=== PATIENT | male | born 1960 | race Caucasian/White ===

== ENCOUNTER 2017-04-26 13:39 | Emergency (ER) | payer BC, SELFPAY ==
[2017-04-26 14:12] LABS: #Basophils 0.1 thou/uL (0.0-0.2); #Eosinphils 0.1 thou/uL (0.0-0.7); #Lymphocytes 2.1 thou/uL (1.20-3.40); #Monocytes 0.4 thou/uL (0.11-0.59); %Basophils 1.8 % (0.0-1.0); %Eosinophils 1.3 % (0.0-10.0); %Lymphocytes 37.4 % (21.0-51.0); %Monocytes 7.1 % (0.0-10.0); %Neutrophils 52.4 % (42.0-75.0); Hemoglobin 15.3 g/dL (14.0-18.0); Mean Corpuscular Hemoglobin 33.9 pg (27.0-31.0); Platelet Count 300 thou/uL (130-400); RBC Distribution Width 11.2 % (11.5-14.5); Red Blood Cell (RBC) Count 4.51 mill/uL (4.70-6.10); White Blood Cell (WBC) Count 5.7 thou/uL (4.8-10.8)
[2017-04-26 14:20] LABS: INR-International Normal Ratio 1.1; Prothrombin Time 14.3 SEC (12.0-14.7)
[2017-04-26 14:21] LABS: PTT 32.4 SEC (22.9-36.1)
[2017-04-26 14:38] LABS: CKMB 1.2 ng/mL (0-6.6); Troponin I Less than 0.010 ng/mL (< 0.028)
[2017-04-26 14:48] LABS: ALT (SGPT) 13 U/L (8-55); AST (SGOT) 18 U/L (5-34); Alkaline Phosphatase 86 U/L (40-150); Anion Gap 15 mmol/L (10-20); BUN (Urea Nitrogen) 8 mg/dL (8.4-25.7); Bilirubin, Total 0.6 mg/dL (0.2-1.2); CK (CPK) 83 U/L (30-200); Calc. Creatinine Clearance 0 mL/min (70-130); Calcium 9.5 mg/dL (7.8-10.44); Carbon Dioxide 21 mmol/L (22-29); Chloride 105 mmol/L (98-107); Estimated GFR-MDRD Greater than 90; Globulin 3.3 g/dL (2.4-3.5); Glucose 78 mg/dL (70-105); Potassium 4.1 mmol/L (3.5-5.1); Protein, Total 7.3 g/dL (6.0-8.3); Sodium 137 mmol/L (136-145)
--- NOTE | 2017-04-26 15:24 | RAD ---
UPRIGHT PORTABLE CHEST 1 VIEW: HISTORY: A 57-year-old male with a history of chest pain. COMPARISON: 04/09/16. FINDINGS: Monitor leads overlie the chest. Heart size is within normal limits. No confluent pneumonia, overt edema, or pleural effusion. IMPRESSION: No acute intrathoracic disease. Stable from prior study. POS: [facility]
[2017-04-26] MEDS ORDERED: Acetaminophen 500 MG TAB ONE (16:41)
== END 2017-04-26 17:04 | disposition home or self-care (01) ==
LOC: ERS 13:39
DX: R07.89 Other chest pain (principal); I10 Essential (primary) hypertension; I48.91 Unspecified atrial fibrillation; E78.5 Hyperlipidemia, unspecified; F17.210 Nicotine dependence, cigarettes, uncomplicated; Z79.899 Other long term (current) drug therapy
CPT/HCPCS: 71045; 80053; 82553; 84484; 85025; 85610; 85730; 93005; 94760

== ENCOUNTER 2017-08-23 14:13 | Outpatient (CLI) | payer OTHER ==
--- NOTE | 2017-08-23 15:08 | RAD ---
CERVICAL SPINE 2 VIEWS: HISTORY: Neck pain and headache. FINDINGS: Vertebral bodies are normal in height. There is disk narrowing at C4-5 and C6-7. Facets are in norm al alignment. IMPRESSION: Moderate arthritic changes of the spine. POS: [facility]
== END 2017-08-23 14:14 | disposition home or self-care (01) ==
LOC: SCSRAD 14:13
PROVIDERS: ATTEND Psychiatry & Neurology Neurology
DX: R51 Headache (principal); M46.92 Unspecified inflammatory spondylopathy, cervical region
CPT/HCPCS: 72040

== ENCOUNTER 2017-11-20 11:48 | Outpatient (CLI) | payer OTHER | END 2017-11-20 11:49 | disposition home or self-care (01) | LOC: BICRAD 11:48 | PROVIDERS: ATTEND Family Medicine | DX: R07.9 Chest pain, unspecified (principal) | CPT/HCPCS: 71046 ==

== ENCOUNTER 2017-12-28 12:17 | Outpatient (CLI) | payer OTHER ==
--- NOTE | 2017-12-28 15:38 | MRI ---
MRI CERVICAL SPINE WITHOUT CONTRAST: Multiplanar, multisequential imaging of the cervical spine obtained. INDICATION: Cervical radiculopathy. Cervical pain. FINDINGS: Cervical vertebrae maintain height and alignment. There are moderate degenerative changes in the mid cervical spine. Loss of disk space is seen at C4-5, C5-6, and C6-7. Hypertrophic osteophytes from the cervical vertebrae anteriorly. At C2-3, there is prominent disk-osteophyte complex projecting centrally and to the left and flatteni ng the thecal sac. No significant cord impingement. At C3-4, disk bulge and spondylosis efface the anterior subarachnoid space and abut the anterior cord . Mild foraminal encroachment from uncinate hypertrophy. At C4-5, mild disk bulge and spondylosis efface the anterior subarachnoid space and abut the anterior cord. Bilateral foraminal narrowing from facet and uncinate hypertrophy, more prominent on the righ t. At C5-6, there is a disk-osteophyte complex projecting paracentrally to the left appreciated in the a xial plane impinging on and mildly indenting the anterior cord. Foraminal encroachment from the hype rtrophic change. At C6-7, mild disk bulge and spondylosis flattens the thecal sac and effaces the anterior subarachnoi d space; however, no evidence of cord impingement. Mild foraminal encroachment from uncinate hypertr ophy. Cord signal is normal. IMPRESSION: 1. Posterior disk bulge and spondylosis is seen at multiple levels of the cervical spine with cord i mpingement at C3-4, C4-5, and C5-6 as described above. 2. Incidentally noted on review of soft tissues is evidence of soft tissue encroachment on the airwa y in the lower oropharynx and upper hypopharynx region. This is inadequately evaluated on this study due to artifact in this region. Recommend direct physical examination of this region. POS: [facility]
== END 2017-12-28 12:18 | disposition home or self-care (01) ==
LOC: BICMRI 12:17
PROVIDERS: ATTEND Family Medicine
DX: M47.22 Other spondylosis with radiculopathy, cervical region (principal); M50.11 Cervical disc disorder with radiculopathy, high cervical region
CPT/HCPCS: 72156

== ENCOUNTER 2018-04-08 17:07 | Emergency (ER) | payer OTHER ==
[2018-04-08 17:53] LABS: #Basophils 0.1 thou/uL (0.0-0.2); #Eosinphils 0.1 thou/uL (0.0-0.7); #Lymphocytes 2.4 thou/uL (1.20-3.40); #Monocytes 0.5 thou/uL (0.11-0.59); %Basophils 1.2 % (0.0-1.0); %Eosinophils 1.8 % (0.0-10.0); %Lymphocytes 39.7 % (21.0-51.0); %Monocytes 7.6 % (0.0-10.0); %Neutrophils 49.8 % (42.0-75.0); Hemoglobin 14.9 g/dL (14.0-18.0); Mean Corpuscular HGB CONC 32.4 g/dL (32.0-36.0); Mean Corpuscular Hemoglobin 32.1 pg (27.0-31.0); Mean Corpuscular Volume 99.1 fL (78.0-98.0); Mean Platelet Volume 7.4 fL (7.4-10.4); Platelet Count 327 thou/uL (130-400); Red Blood Cell (RBC) Count 4.63 mill/uL (4.70-6.10)
[2018-04-08 18:16] LABS: ALT (SGPT) 15 U/L (8-55); AST (SGOT) 15 U/L (5-34); Albumin 4.1 g/dL (3.5-5.0); Alkaline Phosphatase 90 U/L (40-150); Anion Gap 14 mmol/L (10-20); BUN (Urea Nitrogen) 11 mg/dL (8.4-25.7); Bilirubin, Total 0.7 mg/dL (0.2-1.2); Calc. Creatinine Clearance 0 mL/min (70-130); Calcium 9.4 mg/dL (7.8-10.44); Carbon Dioxide 26 mmol/L (22-29); Chloride 104 mmol/L (98-107); Estimated GFR-MDRD 79; Globulin 2.7 g/dL (2.4-3.5); Glucose 91 mg/dL (70-105); Potassium 3.9 mmol/L (3.5-5.1); Protein, Total 6.8 g/dL (6.0-8.3); Sodium 140 mmol/L (136-145)
--- NOTE | 2018-04-08 19:08 | RAD ---
TWO VIEWS CHEST: 04/08/18 HISTORY: Chest pain for one week. PA and lateral views of the chest is obtained. The lungs are well aerated. No evidence of active intrathoracic disease seen. No evidence of effusion s, pneumonia or pneumothorax seen. IMPRESSION: Unremarkable two views chest. POS: [facility]
== END 2018-04-08 19:49 | disposition home or self-care (01) ==
LOC: ERS 17:07
DX: R07.9 Chest pain, unspecified (principal); E78.5 Hyperlipidemia, unspecified; I10 Essential (primary) hypertension; I48.91 Unspecified atrial fibrillation; F17.210 Nicotine dependence, cigarettes, uncomplicated; Z79.82 Long term (current) use of aspirin; Z79.899 Other long term (current) drug therapy; Z79.51 Long term (current) use of inhaled steroids
CPT/HCPCS: 36415; 71046; 80053; 84484; 85025; 93005

== ENCOUNTER 2018-06-28 15:29 | Outpatient (CLI) | payer OTHER ==
--- NOTE | 2018-06-28 15:50 | RAD ---
EXAM: Cervical spine 5 views: HISTORY: Degenerative disc disease, neck pain left shoulder pain COMPARISON: None FINDINGS: C7 and T1 are obscured on the lateral view, the tip of the odontoid in portions of C1 are obscured on the AP open mouth view. No evidence for acute fracture or dislocation involving the visualized spine. There are disc osteophytosis and facet arthrosis changes. No malalignment. No abnormal translation. No evidence for a bone lesion. IMPRESSION: Spondylosis. No significant acute process.
== END 2018-06-28 15:30 | disposition home or self-care (01) ==
LOC: TBSIIMAG 15:29
PROVIDERS: ATTEND Surgery
DX: M48.02 Spinal stenosis, cervical region (principal); M47.812 Spondylosis without myelopathy or radiculopathy, cervical region; M50.10 Cervical disc disorder with radiculopathy, unspecified cervical region
CPT/HCPCS: 72050

== ENCOUNTER 2018-12-13 08:02 | Outpatient (CLI) | payer OTHER ==
--- NOTE | 2018-12-13 09:46 | MRI ---
MRI brain with and without contrast: 11/12/2018 HISTORY: Chronic headaches, chronic dizziness COMPARISON: 02/20/2016 TECHNIQUE: Multiplanar multisequence MR imaging of the brain is obtained with and without contrast FINDINGS: The diffusion weighted imaging demonstrates no evidence for acute infarction. The axial gra dient echo imaging demonstrates no evidence for intracranial hemorrhage. The visualized paranasal sinuses and mastoid air cells are well aerated. Arterial flow voids at the axial level of the skull base are unremarkable on the T2-weighted imaging. The right vertebral artery appears hypoplastic distally. The postcontrast imaging demonstrates no abnormal enhancement within the brain parenchyma. IMPRESSION: No acute findings.
== END 2018-12-13 08:03 | disposition home or self-care (01) ==
LOC: BICMRI 08:02
PROVIDERS: ATTEND Surgery
DX: R51 Headache (principal); M54.12 Radiculopathy, cervical region
CPT/HCPCS: 70553

== ENCOUNTER 2019-08-09 15:06 | Observation (INO) | payer MEDICARE, OTHER ==
[2019-08-09] MEDS ORDERED: Nitroglycerin 2% Ointment 1 INCH/1 GM Packet ONE (16:02)
[2019-08-09 16:06] LABS: #Basophils 0.1 thou/uL (0.0-0.2); #Eosinphils 0.1 thou/uL (0.0-0.7); #Monocytes 0.5 thou/uL (0.11-0.59); #Neutrophils 2.8 thou/uL (1.40-6.50); %Basophils 1.3 % (0.0-1.0); %Eosinophils 1.1 % (0.0-10.0); %Lymphocytes 46.9 % (21.0-51.0); %Monocytes 7.1 % (0.0-10.0); %Neutrophils 43.7 % (42.0-75.0); Hemoglobin 15.6 g/dL (14.0-18.0); Mean Corpuscular HGB CONC 32.7 g/dL (32.0-36.0); Mean Corpuscular Hemoglobin 33.4 pg (27.0-31.0); Mean Platelet Volume 8.1 fL (7.4-10.4); Platelet Count 308 thou/uL (130-400); RBC Distribution Width 11.8 % (11.5-14.5); Red Blood Cell (RBC) Count 4.66 mill/uL (4.70-6.10); White Blood Cell (WBC) Count 6.3 thou/uL (4.8-10.8)
[2019-08-09 16:13] LABS: Prothrombin Time 13.6 sec (12.0-14.7)
[2019-08-09 16:27] LABS: ALT (SGPT) 18 U/L (8-55); AST (SGOT) 19 U/L (5-34); Albumin 4.1 g/dL (3.5-5.0); Alkaline Phosphatase 89 U/L (40-110); Anion Gap 14 mmol/L (10-20); BUN (Urea Nitrogen) 6 mg/dL (8.4-25.7); Bilirubin, Total 0.6 mg/dL (0.2-1.2); CK (CPK) 80 U/L (30-200); Calc. Creatinine Clearance 0 mL/min (70-130); Carbon Dioxide 22 mmol/L (22-29); Chloride 109 mmol/L (98-107); Estimated GFR-MDRD 89; Glucose 85 mg/dL (70-105); Potassium 4.1 mmol/L (3.5-5.1); Protein, Total 7.1 g/dL (6.0-8.3); Sodium 141 mmol/L (136-145)
[2019-08-09] MEDS ORDERED: Morphine 2 MG/ML SYRINGE ONE (16:57)
--- NOTE | 2019-08-09 17:04 | RAD ---
CHEST ONE VIEW: 08/09/19 HISTORY: Chest pain. COMPARISON: Radiograph 2018. FINDINGS: A recording device projects in the left hemithorax. There is a calcification in the right axillary po uch. Lungs are clear. No pneumothorax. No effusion. Cardiac silhouette and mediastinal contours appear wit hin normal limits. IMPRESSION: No acute intrathoracic abnormality. POS: [facility]
[2019-08-09 18:47] LABS: Troponin I Less than 0.010 ng/mL (< 0.028)
--- NOTE | 2019-08-09 20:02 | HP ---
PRIMARY CARE PHYSICIAN: Benny Cruz MD CHIEF COMPLAINT: Chest pain. HISTORY OF PRESENT ILLNESS: The patient is a 59-year-old male with past medical history significant for hypertension, AFib status post ablation in 2017, and hyperlipidemia, who presents to the ER for epigastric and chest pain. The patient states that he has had this chest pain since 2016. It comes on and off, but over the past 2 to 3 weeks, it has been more profound and occurring more often. The pain starts with stomach tightening or cramping and then rises up into his chest where he feels needles and pins toward his heart. Shortness of breath can accompany the pain along with becoming diaphoretic and he does feel, at times, that is worse with a deep breath. He notices no difference in pain with movement or rest. No medications have been tried to relieve the pain at home. Today, he developed a sharper pain than his usual when lying down which took his breath away. This pain did not leave or stop like it usually does and it stayed up until his arrival at the ER where it began to dull in nature. 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 White, who completed a stress test on him 2 weeks ago, which the patient says was normal. He had been started on Isosorbide but stated that made him too nauseous so they changed him to Ranexa which he thinks he is also having a hard time tolerating. He also states that Dr. Jacobo did an EGD on him 4 to 5 months ago, which showed an ulcer, that was biopsied, but this pain is different than the pain he experienced at that time. In the ER, blood work was completed along with an EKG, which showed sinus rhythm, 72 pulse, no ectopic beats. Also, a chest x-ray was completed, that showed nothing acute. He was given 2 mg of morphine and 1 inch of nitroglycerin paste, which he said neither one relieved any of his symptoms. PAST MEDICAL HISTORY: Hypertension, AFib, and hyperlipidemia. PAST SURGICAL HISTORY: Ablation in 2017 and loop monitor. ALLERGIES: NO KNOWN DRUG ALLERGIES. MEDICATIONS: 1. Aspirin 81 mg p.o. daily. 2. Metoprolol tartrate 25 mg daily. 3. Eliquis 5 mg p.o. b.i.d. 4. Atorvastatin 20 mg p.o. at bedtime. 5. Ranexa 500 mg p.o. b.i.d. SOCIAL HISTORY: The patient lives with his at home. He is a half pack-a- day smoker since the age of 15. No illicit drug use and very rare alcohol use, just socially. FAMILY HISTORY: Mother positive for diabetes and end-stage renal disease. Sister positive for cirrhosis and hepatitis C. REVIEW OF SYSTEMS: All other review of systems are negative unless noted in the HPI. PHYSICAL EXAMINATION: VITAL SIGNS: Blood pressure 114/80, pulse 68, respiratory rate 18, and oxygen saturation 97% on room air. HEENT: Head, normal, atraumatic, normocephalic. NECK: Trachea midline. No JVD. No lymphadenopathy. CARDIOVASCULAR: Regular rate and rhythm. No murmurs, no gallops, no rubs. RESPIRATORY: Clear to auscultation bilaterally. No wheezes, no rhonchi, no rales. ABDOMEN: Bowel sounds normal. No distention, no masses, no guarding, no rigidity. EXTREMITIES: No peripheral edema. PSYCHIATRIC: Normal affect. Normal behavior. LABS AND IMAGING: EKG; sinus rhythm, no ectopic beats. Troponin was negative, serial enzymes pending. BNP 14.3. Sodium 141, potassium 4.1, creatinine 0.88, and GFR 89. Alkaline phosphatase 89, AST 19, and ALT 18. White blood cells 6.3, H/H are 15.6 and 47.6. IMPRESSION: Atypical chest pain, acute, stable Epigastric pain, acute, stable HTN, chronic, stable Hyperlipidemia, chronic, stable PLAN: GI prophylaxis, Pepcid b.i.d. DVT prophylaxis, the patient is currently on Eliquis 5 mg twice a day and aspirin 81 mg. Continue to trend troponins. Consult Cardiology in the a.m. Obtain medical records from his mixing plant dumper. Gallbladder ultrasound for the epigastric pain. The patient wishes to be a full code. His designated power of insurance defense attorney would be his , Koki, phone #. Patient was discussed with Dr. Shelby. Job ID: [id number] MTDD
[2019-08-09] MEDS ORDERED: Acetaminophen 325 MG TAB PO PRN (20:32)
[2019-08-09] MEDS ORDERED: Ondansetron ODT 4 MG TAB SL PRN (20:32)
[2019-08-09] MEDS ORDERED: Ondansetron PF 4 MG/2 ML Vial IVP PRN (20:32)
[2019-08-09 20:48] VITALS: BMI 23.9
[2019-08-09] MEDS: Nitroglycerin 2% Ointment 1 INCH/1 GM Packet TOP SCH (21:50)
[2019-08-09] MEDS: Famotidine 20 MG TAB PO SCH (21:50)
[2019-08-09 22:37] LABS: Troponin I 0.014 ng/mL (< 0.028)
[2019-08-10 04:03] LABS: #Basophils 0.1 thou/uL (0.0-0.2); #Eosinphils 0.2 thou/uL (0.0-0.7); #Lymphocytes 3.1 thou/uL (1.20-3.40); #Monocytes 0.8 thou/uL (0.11-0.59); #Neutrophils 3.1 thou/uL (1.40-6.50); %Basophils 1.2 % (0.0-1.0); %Eosinophils 2.3 % (0.0-10.0); %Lymphocytes 43.2 % (21.0-51.0); %Monocytes 10.8 % (0.0-10.0); %Neutrophils 42.5 % (42.0-75.0); Mean Corpuscular HGB CONC 33.5 g/dL (32.0-36.0); Mean Corpuscular Hemoglobin 34.6 pg (27.0-31.0); Mean Platelet Volume 7.7 fL (7.4-10.4); Platelet Count 254 thou/uL (130-400); RBC Distribution Width 11.7 % (11.5-14.5); Red Blood Cell (RBC) Count 4.05 mill/uL (4.70-6.10); White Blood Cell (WBC) Count 7.3 thou/uL (4.8-10.8)
[2019-08-10 04:27] LABS: Anion Gap 10 mmol/L (10-20); BUN (Urea Nitrogen) 11 mg/dL (8.4-25.7); Calc. Creatinine Clearance 80 mL/min (70-130); Calcium 8.5 mg/dL (7.8-10.44); Carbon Dioxide 28 mmol/L (22-29); Chloride 107 mmol/L (98-107); Estimated GFR-MDRD 78; Glucose 71 mg/dL (70-105); Sodium 141 mmol/L (136-145)
[2019-08-10] MEDS: Nitroglycerin 2% Ointment 1 INCH/1 GM Packet TOP SCH ×3 (05:50→21:30)
[2019-08-10] MEDS: Acetaminophen 325 MG TAB PO PRN ×3 (05:52→16:41)
[2019-08-10] MEDS: Famotidine 20 MG TAB PO SCH ×2 (07:36→21:29)
--- NOTE | 2019-08-10 08:04 | ULT ---
RIGHT UPPER QUADRANT ULTRASOUND: HISTORY: Epigastric pain. FINDINGS: Slightly coarse liver echogenicity. No evidence of gallstones, wall thickening, edema or pericholecys tic fluid. The common bile duct is 0.5 cm. The visualized pancreas and right kidney are unremarkable. IMPRESSION: 1. Slightly coarse liver echogenicity. 2. No evidence of gallstones. POS: [facility]
--- NOTE | 2019-08-10 10:58 | PDOC.HOSPP ---
- Subjective Encounter Date: 08/10/19 Encounter Time: 10:15 Subjective: Mr. Mullins was seen as a follow up for chest and epigastric pain. He states both pains seem to come and go with no contributing factors. The chest pain does seem to be relieved slightly by the nitro patch he thinks. - Objective Vital Signs & Weight: Vital Signs (12 hours) Temp Pulse Resp BP BP Pulse Ox 08/10/19 07:41 98.4 F 59 L 16 103/59 L 97 08/10/19 03:43 98 F 59 L 18 101/58 L 97 08/09/19 23:26 98.7 F 72 18 104/64 97 Weight Weight 152 lb 11.2 oz I&O: 08/09/19 08/10/19 08/11/19 06:59 06:59 06:59 Intake Total 480 Output Total 175 Balance 305 Result Diagrams: 08/10/19 03:41 08/10/19 03:41 EKG Reviewed by me: Yes (SR 60s) Hospitalist ROS - Medication Medications: Active Medications Generic Name Dose Route Start Last Admin Trade Name Freq PRN Reason Stop Dose Admin Acetaminophen 650 mg 08/09/19 20:47 08/10/19 05:52 Tylenol PO 650 mg Q4H PRN Administration Headache/Fever/Mild Pain (1-3) Famotidine 20 mg 08/09/19 21:00 08/10/19 07:36 Pepcid PO 20 mg BID HOOD Administration Nitroglycerin 0.5 inch 08/09/19 22:00 08/10/19 05:50 Nitro-Bid 2% Ointment TOP 0.5 inch Q8HR HOOD Administration Sodium Chloride 10 ml 08/09/19 21:00 08/10/19 07:37 Flush - Normal Saline IVF 10 ml Q12HR HOOD Administration - Exam General Appearance: NAD, awake alert Neck: supple, symmetric, no lymphadenopathy Heart: RRR, no murmur, no gallops, no rubs Respiratory: CTAB, no wheezes, no rales, no ronchi Gastrointestinal: soft, non-tender, non-distended, normal bowel sounds, no guarding, no rigidity Extremities: no cyanosis, no clubbing, no edema Psychiatric: normal affect, normal behavior Hosp A/P (1) Chest pain Code(s): R07.9 - CHEST PAIN, UNSPECIFIED Status: Acute (2) Epigastric abdominal pain Code(s): R10.13 - EPIGASTRIC PAIN Status: Acute - Plan Home medications resumed. Chest pain: continue NTP, tele monitoring, troponins (-) x3, await cardiology consult Epigastric pain: GI prophylaxis- pepcid, await US results NPO at this time for US and cardiology consult
--- NOTE | 2019-08-10 11:05 | CON ---
DATE OF CONSULTATION: REASON FOR CONSULTATION: Chest pain. PRIMARY OWNER/OPERATOR: Dr. Lul Min. HISTORY OF PRESENT ILLNESS: Mr. Mullins is a 59-year-old gentleman, who recently presented with chest pain. Mr. Mullins states he underwent coronary angiography one year ago and was not found to have significant coronary artery disease. He also states he recently underwent a noninvasive stress study 2 weeks ago due to chest pain over the last 4 weeks in [place] and was not found to have ischemia. He states his symptoms occur daily and have occurred daily over the last 4 weeks. They mainly occur after eating. He has been seen and evaluated by GI in the past. His symptoms do not appear to be exertion related. PAST MEDICAL HISTORY: Atrial fibrillation, hypertension, hyperlipidemia. SURGICAL HISTORY: Previous ablation. ALLERGIES: NONE. HOME MEDICATIONS: 1. Aspirin. 2. Metoprolol. 3. Eliquis. 4. Atorvastatin. 5. Ranexa. SOCIAL HISTORY: Positive tobacco use. No alcohol use. FAMILY HISTORY: Negative for CAD. REVIEW OF SYSTEMS: A 10-point review of systems is reviewed as above, otherwise negative. PHYSICAL EXAMINATION: GENERAL: Patient is a pleasant male, who is in no acute distress. The patient appears their stated age. VITAL SIGNS: Blood pressure 103/59, pulse 69, temperature 98.4. NEUROLOGIC: The patient is alert and oriented x3 with no focal neurologic deficits. HEENT: Sclerae without icterus. Mouth has moist mucous membranes with normal pallor. NECK: No JVD. Carotid upstroke brisk. No bruits bilaterally. LUNGS: Clear to auscultation with unlabored respirations. BACK: No scoliosis or kyphosis. CARDIAC: Regular rate and rhythm with normal S1 and S2. No S3 or S4 noted. No significant rubs, murmurs, thrills, or gallops noted throughout the precordium. PMI is not displaced. There is no parasternal heave. ABDOMEN: Soft, nontender, nondistended. No peritoneal signs present. No hepatosplenomegaly. No abnormal striae. EXTREMITIES: 2+ femoral and 2+ dorsalis pedis pulses. No cyanosis, clubbing, or edema. SKIN: No gross abnormalities. PERTINENT LABORATORY DATA: Hemoglobin 14, hematocrit 41.8, platelet count of 254. EKG, normal sinus rhythm with nonspecific ST-T wave changes. IMPRESSION: 1. Recurrent chest pain. 2. Tobacco abuse. 3. Atrial fibrillation, on anticoagulation therapy. RECOMMENDATIONS: Mr. Mullins recently underwent a noninvasive stress study, it was felt to be negative for ischemia. He also had an angiogram performed within the last year per the patient in [place]. We will try to obtain those records. His symptoms do not appear to be anginal. His symptoms occur mainly after eating and not exertion related. At this point, may consider GI consultation to assess for GI origin. Again, we will try to obtain records. From a CV standpoint, we would recommend repeat angio versus medical therapy. At this point, given recent anticoagulation therapy, cannot proceed with angio for the next 2 days. Job ID: [id number]
--- NOTE | 2019-08-10 14:20 | PDOC.HOSPP ---
- Subjective Encounter Date: 08/10/19 Encounter Time: 14:19 Subjective: Mr. Mullins was seen today in follow-up of chest pain. - Objective Vital Signs & Weight: Vital Signs (12 hours) Temp Pulse Resp BP BP Pulse Ox 08/10/19 11:02 98.6 F 56 L 19 114/56 L 98 08/10/19 07:41 98.4 F 59 L 16 103/59 L 97 08/10/19 03:43 98 F 59 L 18 101/58 L 97 Weight Weight 152 lb 11.2 oz I&O: 08/09/19 08/10/19 08/11/19 06:59 06:59 06:59 Intake Total 480 Output Total 175 Balance 305 Result Diagrams: 08/10/19 03:41 08/10/19 03:41 Hospitalist ROS - Medication Medications: Active Medications Generic Name Dose Route Start Last Admin Trade Name Freq PRN Reason Stop Dose Admin Acetaminophen 650 mg 08/09/19 20:47 08/10/19 11:15 Tylenol PO 650 mg Q4H PRN Administration Headache/Fever/Mild Pain (1-3) Famotidine 20 mg 08/09/19 21:00 08/10/19 07:36 Pepcid PO 20 mg BID HOOD Administration Nitroglycerin 0.5 inch 08/09/19 22:00 08/10/19 05:50 Nitro-Bid 2% Ointment TOP 0.5 inch Q8HR HOOD Administration Sodium Chloride 10 ml 08/09/19 21:00 08/10/19 07:37 Flush - Normal Saline IVF 10 ml Q12HR HOOD Administration - Exam General Appearance: NAD Eye: PERRL Heart: RRR, no murmur, no gallops, no rubs, normal peripheral pulses Respiratory: CTAB, no wheezes, no rales, no ronchi, normal chest expansion Gastrointestinal: soft, non-tender, non-distended, normal bowel sounds, no palpable masses, no hepatomegaly Extremities: no cyanosis, no edema Hosp A/P (1) Chest pain Code(s): R07.9 - CHEST PAIN, UNSPECIFIED Status: Acute (2) Alcohol abuse Code(s): F10.10 - ALCOHOL ABUSE, UNCOMPLICATED Status: Chronic (3) HLD (hyperlipidemia) Code(s): E78.5 - HYPERLIPIDEMIA, UNSPECIFIED Status: Chronic - Plan * Chest pain- discussed with Marisela Forbes NP and agree. Awaiting Cardiology evaluation * AFIB- heart rate is stable- continue Metoprolol, and Eleiquis for CVA prophylaxis * Due to the epigastric nature of the pain, and sometimes worsening with eating - agree with consult GI as well
[2019-08-10] MEDS ORDERED: Pantoprazole 40 MG VIAL IVP SCH (17:00)
[2019-08-10] MEDS ORDERED: Apixaban 5 MG TAB PO SCH (21:00)
[2019-08-10] MEDS: Metoprolol Tartrate 50 MG TAB PO SCH (21:29)
[2019-08-10] MEDS: Atorvastatin Calcium 40 MG TAB PO SCH (21:29)
--- NOTE | 2019-08-10 22:48 | CON ---
DATE OF CONSULTATION: 08/10/2019 REASON FOR CONSULTATION: Epigastric pain. HISTORY OF PRESENT ILLNESS: Dhruv Mullins is a 59-year-old gentleman who was admitted to the hospital yesterday with chest pain and epigastric pain. He has a history of atrial fibrillation status post ablation procedure in 2017, but is chronically on Eliquis. He has had several years of intermittent chest pains worked up by Cardiology elsewhere. Late last year at some point, he was having pains in the left upper quadrant and underwent EGD with Dr. Jacobo. He recalls being told he had H pylori and being treated with triple therapy. He feels that those symptoms did improve for a while after that, but now for the past couple of months he has been having what he describes as different pains. These usually originate in the chest and then radiate to the epigastrium, but will sometimes originate in the epigastrium and radiate to the chest and will often involve both areas. This is episodic, but it comes and goes all day long. It is sharp and often severe. It can come on at rest between mealtimes or postprandially. There is associated nausea and occasionally dry heaves, but no vomiting. There is some mild shortness of breath. He denies any dysphagia or any change in bowel habits. He denies any overt bleeding. He is not sure whether nitroglycerin tends to relieve the pain or not. He is not on any acid suppression. He denies nonsteroidal anti-inflammatory drug use. He evidently had a negative stress test elsewhere a couple of weeks ago. REVIEW OF SYSTEMS: Full review of systems including constitutional, head, eyes, ears, nose, throat, GI, , cardiovascular, respiratory, musculoskeletal, neurologic systems is negative except as noted in the HPI. PAST MEDICAL HISTORY: Atrial fibrillation, cardiac ablation 2017, hypertension, hyperlipidemia, H pylori treated after EGD with Dr. Jacobo around late 2018. ALLERGIES: NO KNOWN DRUG ALLERGIES. OUTPATIENT MEDICATIONS: 1. Aspirin 81 mg daily. 2. Eliquis 5 mg b.i.d. 3. Metoprolol. 4. Atorvastatin. 5. Ranexa. SOCIAL HISTORY: The patient does smoke. Alcohol use is rare. FAMILY HISTORY: His sister had HCV and cirrhosis. PHYSICAL EXAMINATION: VITAL SIGNS: Temperature 98.6, pulse 50, blood pressure 108/52, 98% oxygen saturation on room air. GENERAL: A 59-year-old man lying in bed comfortably, in no distress. He is anxious. SKIN: No jaundice. No rashes were palpable. EYES: No scleral icterus. Extraocular movements intact. ENT: Mucous membranes moist. No oral lesions. LYMPH: No submandibular or supraclavicular lymphadenopathy. THYROID: Nontender to palpation. HEART: Regular rate and rhythm. LUNGS: Clear to auscultation bilaterally. ABDOMEN: Bowel sounds are present. Soft, nontender to palpation throughout including in the epigastrium and left upper quadrant. No guarding, rebound, or tenderness. EXTREMITIES: No peripheral edema. VESSELS: Radial pulses 2+ bilaterally. NEURO: Cranial nerves 2-12 intact bilaterally. No focal deficits. LABORATORY STUDIES: Labs are all unremarkable with WBC 7.3, hemoglobin 14.0, platelets 254. INR 1.0. Sodium 141, potassium 4.0, BUN 11, creatinine 0.99. Troponin negative x3. BNP only 14.3. CK only 80. LFTs all normal with total bilirubin 0.6, alkaline phosphatase 18, AST 19, ALT 18, albumin 4.1. I do not see a lipase level. IMAGING STUDIES: Chest x-ray showed no acute processes. Abdominal ultrasound showed coarse liver but normal gallbladder, no stones, normal common bile duct measuring 5 mm. ASSESSMENT AND PLAN: 1. Chest pain, unclear etiology. 2. Epigastric pain. 3. Nausea, associated with epigastric pain and chest pain. 4. History of Helicobacter pylori, treated with triple therapy several months ago. The patient has been evaluated by Cardiology. He evidently had a negative stress test a couple of months ago. Frankly, his symptoms do not seem particularly GI related to me, but he does have this history of treated Helicobacter pylori. It would be reasonable to perform repeat EGD for further evaluation. I will start him on pantoprazole 40 mg IV daily. In the meantime, I would also like to check a lipase level with tomorrow morning's labs. The patient will need to hold his Eliquis for 2 whole days prior to any endoscopy. Eliquis has been held today, so we will hold it tomorrow, and tentatively plan for the procedure the following day. The patient can have his regular cardiac diet in the meantime. Thank you for the consultation. Please call anytime with questions or concerns. Job ID: [id number]
[2019-08-11] MEDS: Nitroglycerin 2% Ointment 1 INCH/1 GM Packet TOP SCH ×3 (06:04→20:16)
[2019-08-11] MEDS: Aspirin Chewable 81 MG TAB PO SCH (07:51)
[2019-08-11] MEDS: Famotidine 20 MG TAB PO SCH ×2 (07:51→20:13)
[2019-08-11] MEDS: Pantoprazole 40 MG VIAL IVP SCH (07:52)
[2019-08-11] MEDS: Metoprolol Tartrate 50 MG TAB PO SCH ×2 (08:04→20:15)
--- NOTE | 2019-08-11 08:45 | PRG ---
DATE OF SERVICE: 08/11/2019 SUBJECTIVE: Mr. Mullins is doing okay this morning. He says he actually had significant reduction of chest and abdominal pain last night. He received his first dose of IV Protonix yesterday evening. He is tolerating breakfast. OBJECTIVE: VITAL SIGNS: Temperature 98.4, pulse 52, blood pressure 125/60, 96% oxygen saturation on room air. GENERAL: No acute distress, sitting up on the side of bed comfortably. HEART: Regular rate and rhythm. LUNGS: Clear to auscultation bilaterally. ABDOMEN: Bowel sounds present. Soft and nontender to palpation. EXTREMITIES: No peripheral edema. LABORATORY STUDIES: Lipase is only 17. ASSESSMENT AND PLAN: 1. Chest pain. 2. Epigastric pain. 3. History of Helicobacter pylori infection, recently treated with triple therapy late last year. We are holding Eliquis for a second day today, in anticipation of diagnostic esophagogastroduodenoscopy tomorrow. The patient has had some improvement in his symptoms overnight after a dose of Protonix yesterday evening, unclear whether this is the reason for improvement. We will proceed with plan for esophagogastroduodenoscopy tomorrow, unless Cardiology team feels otherwise. Job ID: [id number]
--- NOTE | 2019-08-11 11:41 | PDOC.HOSPP ---
- Subjective Encounter Date: 08/11/19 Encounter Time: 10:30 Subjective: Mr Mullins is seen as a follow up this morning for chest and epigastric pain. He states he is feeling somewhat better this morning but still having some upper epigastric pain, he states the chest pain has been much milder when it occurs lately. - Objective Vital Signs & Weight: Vital Signs (12 hours) Temp Pulse Resp BP Pulse Ox 08/11/19 07:50 98.4 F 52 L 16 125/60 96 08/11/19 03:57 98.4 F 50 L 18 121/56 L 98 Weight Weight 152 lb 11.2 oz I&O: 08/10/19 08/11/19 08/12/19 06:59 06:59 06:59 Intake Total 480 1296 Output Total 175 800 Balance 305 496 Result Diagrams: 08/10/19 03:41 08/10/19 03:41 Hospitalist ROS - Medication Medications: Active Medications Generic Name Dose Route Start Last Admin Trade Name Freq PRN Reason Stop Dose Admin Acetaminophen 650 mg 08/09/19 20:47 08/10/19 16:41 Tylenol PO 650 mg Q4H PRN Administration Headache/Fever/Mild Pain (1-3) Aspirin 81 mg 08/11/19 09:00 08/11/19 07:51 Aspirin Chewable PO 81 mg DAILY HOOD Administration Atorvastatin Calcium 20 mg 08/10/19 21:00 08/10/19 21:29 Lipitor PO 20 mg HS HOOD Administration Famotidine 20 mg 08/09/19 21:00 08/11/19 07:51 Pepcid PO 20 mg BID HOOD Administration Metoprolol Tartrate 25 mg 08/10/19 21:00 08/11/19 08:04 Lopressor PO Not Given BID HOOD Nitroglycerin 0.5 inch 08/09/19 22:00 08/11/19 06:04 Nitro-Bid 2% Ointment TOP Not Given Q8HR HOOD Pantoprazole Sodium 40 mg 08/11/19 09:00 08/11/19 07:52 Protonix IVP 40 mg DAILY HOOD Administration Ranolazine 500 mg 08/10/19 21:00 08/11/19 08:04 Ranexa PO Not Given BID [facility] Sodium Chloride 10 ml 08/09/19 21:00 08/11/19 07:53 Flush - Normal Saline IVF 10 ml Q12HR HOOD Administration - Exam General Appearance: NAD, awake alert ENT: normocephalic atraumatic, moist mucosa Neck: supple, symmetric, no lymphadenopathy Heart: RRR, no murmur, no gallops, no rubs Respiratory: CTAB, no wheezes, no rales, no ronchi Gastrointestinal: soft, non-tender, non-distended, normal bowel sounds, no guarding, no rigidity Extremities: no cyanosis, no edema Psychiatric: normal affect, normal behavior Hosp A/P (1) Chest pain Code(s): R07.9 - CHEST PAIN, UNSPECIFIED Status: Acute (2) Epigastric abdominal pain Code(s): R10.13 - EPIGASTRIC PAIN Status: Acute - Plan Chest pain: continue NTP, tele monitoring, troponins (-) x3, awaiting records from regular extermination supervisor to determine how to proceed with cardiology here Epigastric pain: IV protonix, EGD planned for tomorrow Eliquis on hold since yesterday to prepare for EGD tomorrow and possible heart cath this week
[2019-08-11] MEDS: Atorvastatin Calcium 40 MG TAB PO SCH (20:14)
[2019-08-12] MEDS: Nitroglycerin 2% Ointment 1 INCH/1 GM Packet TOP SCH ×3 (05:27→20:13)
[2019-08-12] MEDS: Pantoprazole 40 MG VIAL IVP SCH (07:40)
[2019-08-12] MEDS: Famotidine 20 MG TAB PO SCH ×2 (07:40→20:09)
[2019-08-12] MEDS: Acetaminophen 325 MG TAB PO PRN ×3 (07:41→20:10)
[2019-08-12] MEDS: Aspirin Chewable 81 MG TAB PO SCH (08:00)
[2019-08-12] MEDS ORDERED: Lidocaine 1% PF 5 ML VIAL ONE (10:02)
[2019-08-12] MEDS ORDERED: PROPOFOL 200 MG/20 ML VIAL ONE (10:02)
[2019-08-12] MEDS: Metoprolol Tartrate 50 MG TAB PO SCH ×2 (12:35→20:09)
--- NOTE | 2019-08-12 14:27 | PDOC.HOSPP ---
- Subjective Encounter Date: 08/12/19 Encounter Time: 13:15 Subjective: Mr Mullins is seen as a follow up on epigastric and chest pain. He had an EGD this am where they obtained a biopsy. He presently just has a little stomach discomfort but no chest pain. We are still awaiting records from outpatient cardiology regarding his recent stress test and possible heart cath. - Objective Vital Signs & Weight: Vital Signs (12 hours) Temp Pulse Resp BP Pulse Ox 08/12/19 11:30 98.2 F 48 L 16 121/75 99 08/12/19 10:43 97 08/12/19 07:52 97.8 F 57 L 16 115/61 97 08/12/19 03:49 98.1 F 54 L 18 99/56 L 98 Weight Weight 152 lb 6.4 oz I&O: 08/11/19 08/12/19 08/13/19 06:59 06:59 06:59 Intake Total 1296 1280 Output Total 800 920 Balance 496 360 Result Diagrams: 08/10/19 03:41 08/10/19 03:41 Hospitalist ROS - Medication Medications: Active Medications Generic Name Dose Route Start Last Admin Trade Name Freq PRN Reason Stop Dose Admin Acetaminophen 650 mg 08/09/19 20:47 08/12/19 13:41 Tylenol PO 650 mg Q4H PRN Administration Headache/Fever/Mild Pain (1-3) Aspirin 81 mg 08/11/19 09:00 08/12/19 08:00 Aspirin Chewable PO Not Given DAILY [facility] Atorvastatin Calcium 20 mg 08/10/19 21:00 08/11/19 20:14 Lipitor PO 20 mg HS HOOD Administration Famotidine 20 mg 08/09/19 21:00 08/12/19 07:40 Pepcid PO 20 mg BID HOOD Administration Metoprolol Tartrate 25 mg 08/10/19 21:00 08/12/19 12:35 Lopressor PO Not Given BID HOOD Nitroglycerin 0.5 inch 08/09/19 22:00 08/12/19 13:39 Nitro-Bid 2% Ointment TOP Not Given Q8HR HOOD Pantoprazole Sodium 40 mg 08/11/19 09:00 08/12/19 07:40 Protonix IVP 40 mg DAILY HOOD Administration Ranolazine 500 mg 08/10/19 21:00 08/12/19 07:40 Ranexa PO Not Given BID HOOD Sodium Chloride 10 ml 08/09/19 21:00 08/12/19 07:41 Flush - Normal Saline IVF 10 ml Q12HR HOOD Administration - Exam General Appearance: NAD, awake alert Eye: PERRL, anicteric sclera Neck: supple, symmetric, no lymphadenopathy Heart: RRR, no murmur, no gallops, no rubs Respiratory: CTAB, no wheezes, no rales, no ronchi Gastrointestinal: soft, non-tender, non-distended, normal bowel sounds Extremities: no cyanosis, no edema Psychiatric: normal affect, normal behavior Hosp A/P (1) Chest pain Code(s): R07.9 - CHEST PAIN, UNSPECIFIED Status: Acute (2) Epigastric abdominal pain Code(s): R10.13 - EPIGASTRIC PAIN Status: Acute - Plan Chest pain: refusing NTP due to EUBANKS, tele monitoring, troponins (-) x3, awaiting records from regular air analysis technician to determine how to proceed with cardiology here Epigastric pain: IV protonix, EGD completed today- await biopsy results Eliquis on hold since 08/09 in preparation for EGD today and possible heart cath
--- NOTE | 2019-08-12 15:50 | PDOC.EVN ---
Event Note - Event Note Event Note: Mr. Mullins was seen and examined and discussed with Marisela Forbes NP. He does not have any new complaints. His exam is unchanged EGD results were noted. Awaiting the records from the outside facility.
--- NOTE | 2019-08-12 17:17 | OP ---
DATE OF PROCEDURE: 08/12/2019 PROCEDURE PERFORMED: Esophagogastroduodenoscopy with biopsy. PREOPERATIVE DIAGNOSES: Chest pain, abdominal pain. POSTOPERATIVE DIAGNOSES: 1. Normal esophageal mucosa, no esophagitis seen. 2. Normal GE junction. 3. Normal stomach. 4. Duodenitis. DESCRIPTION OF PROCEDURE: The patient was placed on his left lateral position and was given sedation by Anesthesia Department. A [employer] video gastroscope under direct vision passed down the oropharynx past the GE junction, into the stomach and subsequently into the descending duodenum. Although, the patient has had chest pain, on endoscopy, no esophagitis seen. The mucosa appears normal. No erosions or any ulceration seen. In the GE junction, no lesion seen. Retroflexion of scope in the stomach failed to show any pathology in fundus or cardia. In the gastric body, gastric antrum, no lesion seen. The mucosa in the duodenal bulb was edematous, erythematous, indicative of duodenitis. In the descending duodenum, no pathology seen. Biopsy obtained form the gastric antrum and gastric body. The stomach was decompressed and the scope removed. RECOMMENDATIONS: 1. Continue pantoprazole. 2. Await gastric biopsy and decide further course of treatment. Job ID: [id number]
[2019-08-12] MEDS: Atorvastatin Calcium 40 MG TAB PO SCH (20:09)
[2019-08-13 05:00] LABS: #Basophils 0.1 thou/uL (0.0-0.2); #Eosinphils 0.1 thou/uL (0.0-0.7); #Lymphocytes 3.2 thou/uL (1.20-3.40); #Monocytes 0.6 thou/uL (0.11-0.59); #Neutrophils 3.1 thou/uL (1.40-6.50); %Basophils 0.9 % (0.0-1.0); %Eosinophils 1.7 % (0.0-10.0); %Lymphocytes 44.9 % (21.0-51.0); %Monocytes 8.4 % (0.0-10.0); %Neutrophils 44.1 % (42.0-75.0); Hemoglobin 14.3 g/dL (14.0-18.0); Mean Corpuscular HGB CONC 32.5 g/dL (32.0-36.0); Mean Corpuscular Hemoglobin 33.3 pg (27.0-31.0); Mean Platelet Volume 7.9 fL (7.4-10.4); Platelet Count 245 thou/uL (130-400); RBC Distribution Width 11.5 % (11.5-14.5); Red Blood Cell (RBC) Count 4.29 mill/uL (4.70-6.10); White Blood Cell (WBC) Count 7.1 thou/uL (4.8-10.8)
[2019-08-13 05:18] LABS: Anion Gap 8 mmol/L (10-20); BUN (Urea Nitrogen) 17 mg/dL (8.4-25.7); Calc. Creatinine Clearance 69 mL/min (70-130); Calcium 8.8 mg/dL (7.8-10.44); Carbon Dioxide 30 mmol/L (22-29); Chloride 105 mmol/L (98-107); Estimated GFR-MDRD 66; Glucose 91 mg/dL (70-105); Potassium 3.8 mmol/L (3.5-5.1); Sodium 139 mmol/L (136-145)
[2019-08-13] MEDS: Nitroglycerin 2% Ointment 1 INCH/1 GM Packet TOP SCH ×3 (05:49→22:12)
[2019-08-13] MEDS: Aspirin Chewable 81 MG TAB PO SCH (08:06)
[2019-08-13] MEDS: Pantoprazole 40 MG VIAL IVP SCH (08:07)
[2019-08-13] MEDS: Famotidine 20 MG TAB PO SCH ×2 (08:07→20:16)
[2019-08-13] MEDS: Metoprolol Tartrate 50 MG TAB PO SCH ×2 (08:08→20:25)
--- NOTE | 2019-08-13 11:56 | PDOC.HOSPP ---
- Subjective Encounter Date: 08/13/19 Encounter Time: 10:15 Subjective: Mr Harpreet was seen this morning as a follow up for chest and epigastric pain. Today he states that he has a headache from the ranexa but denies chest pain. We are still awaiting records from his heart cath from his previous facility. - Objective Vital Signs & Weight: Vital Signs (12 hours) Temp Pulse Resp BP BP Pulse Ox 08/13/19 07:59 98.3 F 53 L 13 107/64 98 08/13/19 06:50 97 08/13/19 03:48 98.1 F 55 L 20 110/64 97 08/13/19 00:00 50 L 18 Weight Weight 151 lb 8 oz I&O: 08/12/19 08/13/19 08/14/19 06:59 06:59 06:59 Intake Total 1280 1280 Output Total 920 600 Balance 360 680 Result Diagrams: 08/13/19 04:44 08/13/19 04:44 EKG Reviewed by me: Yes Hospitalist ROS - Medication Medications: Active Medications Generic Name Dose Route Start Last Admin Trade Name Freq PRN Reason Stop Dose Admin Acetaminophen 650 mg 08/09/19 20:47 08/12/19 20:10 Tylenol PO 650 mg Q4H PRN Administration Headache/Fever/Mild Pain (1-3) Apixaban 5 mg 08/10/19 21:00 08/13/19 10:07 Eliquis PO Not Given BID HOOD Aspirin 81 mg 08/11/19 09:00 08/13/19 08:06 Aspirin Chewable PO 81 mg DAILY HOOD Administration Atorvastatin Calcium 20 mg 08/10/19 21:00 08/12/19 20:09 Lipitor PO 20 mg HS HOOD Administration Famotidine 20 mg 08/09/19 21:00 08/13/19 08:07 Pepcid PO 20 mg BID HOOD Administration Metoprolol Tartrate 25 mg 08/10/19 21:00 08/13/19 08:08 Lopressor PO Not Given BID HOOD Nitroglycerin 0.5 inch 08/09/19 22:00 08/13/19 05:49 Nitro-Bid 2% Ointment TOP Not Given Q8HR HOOD Pantoprazole Sodium 40 mg 08/11/19 09:00 08/13/19 08:07 Protonix IVP 40 mg DAILY HOOD Administration Ranolazine 500 mg 08/10/19 21:00 08/13/19 08:06 Ranexa PO 500 mg BID HOOD Administration Sodium Chloride 10 ml 08/09/19 21:00 08/13/19 08:07 Flush - Normal Saline IVF 10 ml Q12HR HOOD Administration - Exam General Appearance: NAD, awake alert ENT: normocephalic atraumatic, moist mucosa Neck: supple, symmetric, no lymphadenopathy Heart: RRR, no murmur, no gallops, no rubs Respiratory: CTAB, no wheezes, no rales, no ronchi Gastrointestinal: soft, non-tender, non-distended, normal bowel sounds Psychiatric: normal affect, normal behavior Hosp A/P (1) Chest pain Code(s): R07.9 - CHEST PAIN, UNSPECIFIED Status: Acute (2) Epigastric abdominal pain Code(s): R10.13 - EPIGASTRIC PAIN Status: Acute - Plan Chest pain: is taking Ranexa again but claims it gives him a headache, awaiting records from regular top screw to determine how to proceed with cardiology here Epigastric pain: IV protonix, EGD completed yesterday- awaiting biopsy results Shen on hold since 08/09 in preparation for EGD and possible heart cath
[2019-08-13] MEDS: Atorvastatin Calcium 40 MG TAB PO SCH (20:16)
[2019-08-14] MEDS: Pantoprazole 40 MG VIAL IVP SCH (05:55)
[2019-08-14] MEDS: Aspirin Chewable 81 MG TAB PO SCH (05:55)
[2019-08-14] MEDS: Famotidine 20 MG TAB PO SCH (05:55)
[2019-08-14] MEDS ORDERED: Sodium Chloride 0.9% 1,000 ML IV SCH ×2 (06:00→09:39)
[2019-08-14] MEDS: Nitroglycerin 2% Ointment 1 INCH/1 GM Packet TOP SCH (06:06)
[2019-08-14] MEDS: Metoprolol Tartrate 50 MG TAB PO SCH (06:06)
[2019-08-14] MEDS ORDERED: Heparin 10,000 UNITS/1 ML VIAL ONE ×2 (07:17→08:42)
[2019-08-14] MEDS ORDERED: Protamine Sulfate 50 MG/5 ML VIAL ONE (09:01)
[2019-08-14] MEDS ORDERED: Fentanyl 100 MCG/2 ML VIAL ONE (09:02)
[2019-08-14] MEDS ORDERED: Midazolam HCl 2 mg/2 ml Vial ONE (09:02)
[2019-08-14] MEDS ORDERED: Sodium Chloride 0.9% 200 ML IV PRN (09:37)
[2019-08-14] MEDS ORDERED: Acetaminophen/Codeine 30-300mg Tablet PO PRN ×2 (09:37)
[2019-08-14] MEDS ORDERED: Iopamidol 370 76% 100 ML VIAL ONE (10:51)
[2019-08-14] MEDS ORDERED: Iopamidol 370 76% 50 ML VIAL FS ONE (10:51)
[2019-08-14 10:59] LABS: SARS-CoV-2 MS2 Positive; SARS-CoV-2 N Gene Negative; SARS-CoV-2 S Gene Negative; SARS-CoV-2 orf1ab Negative
--- NOTE | 2019-08-14 11:50 | PDOC.HOSPP ---
- Subjective Encounter Date: 08/14/19 Encounter Time: 10:30 Subjective: Mr Harpreet was seen as a follow up after his heart cath for chest pain and epigastric pain. He says he has just a little chest pain at the time of exam and a headache. He had not asked for any PRN medication for his headache previously. No concerns or overnight events noted. - Objective Vital Signs & Weight: Vital Signs (12 hours) Temp Pulse Resp BP BP Pulse Ox 08/14/19 11:23 98.1 F 59 L 16 130/71 97 08/14/19 09:50 98.0 F 63 16 129/77 95 08/14/19 07:04 97.9 F 58 L 18 119/66 97 08/14/19 03:21 99.1 F 77 20 120/71 97 Weight Weight 151 lb 8 oz I&O: 08/13/19 08/14/19 08/15/19 06:59 06:59 06:59 Intake Total 1280 1175 Output Total 600 1250 Balance 680 -75 Result Diagrams: 08/13/19 04:44 08/13/19 04:44 Hospitalist ROS - Medication Medications: Active Medications Generic Name Dose Route Start Last Admin Trade Name Freq PRN Reason Stop Dose Admin Acetaminophen 650 mg 08/09/19 20:47 08/12/19 20:10 Tylenol PO 650 mg Q4H PRN Administration Headache/Fever/Mild Pain (1-3) Atorvastatin Calcium 20 mg 08/10/19 21:00 08/13/19 20:16 Lipitor PO 20 mg HS HOOD Administration Famotidine 20 mg 08/09/19 21:00 08/14/19 05:55 Pepcid PO 20 mg BID HOOD Administration Sodium Chloride 1,000 mls @ 125 mls/hr 08/14/19 09:39 08/14/19 10:09 Normal Saline 0.9% IV 08/14/19 15:30 1,000 mls .Q8H HOOD Administration Metoprolol Tartrate 25 mg 08/10/19 21:00 08/14/19 06:06 Lopressor PO Not Given BID HOOD Sodium Chloride 10 ml 08/09/19 21:00 08/14/19 05:56 Flush - Normal Saline IVF 10 ml Q12HR HOOD Administration - Exam General Appearance: NAD, awake alert ENT: normocephalic atraumatic, moist mucosa Neck: supple, symmetric, no lymphadenopathy Heart: RRR, no murmur, no gallops, no rubs, normal peripheral pulses Respiratory: CTAB, no wheezes, no rales, no ronchi Gastrointestinal: soft, non-tender, non-distended, normal bowel sounds Extremities: no edema Psychiatric: normal affect, normal behavior Hosp A/P (1) Chest pain Code(s): R07.9 - CHEST PAIN, UNSPECIFIED Status: Acute (2) Epigastric abdominal pain Code(s): R10.13 - EPIGASTRIC PAIN Status: Acute - Plan Chest pain: patient had a negative heart cath this am, to continue Ranexa Epigastric pain: resolved as of now, will continue Protonix Anticipate restarting Eliquis now that EGD and heart cath are complete and looking to discharge once bed rest is finished and cleared by cardiology
[2019-08-14 15:31] VITALS: BP 124/75; TEMP 98.4
--- NOTE | 2019-08-15 11:47 | DIS ---
DATE OF ADMISSION: 08/09/2019 DATE OF DISCHARGE: 08/14/2019 DISCHARGE DISPOSITION AND FOLLOWUP: The patient was discharged home. The patient was seen and examined on the day of discharge. Denies any new complaints. INPATIENT CONSULTATIONS: GI and Cardiology. CLINICAL COURSE: The patient is a 59-year-old male with past medical history significant for hypertension, atrial fibrillation status post ablation in 2017, hyperlipidemia, who presented to the ER for epigastric and chest pain. The pain was described as very atypical and it seemed to start in his stomach which would tighten and cramp and then rise up into the chest, where it felt like needles and pins toward his heart. There was shortness of breath accompanying it along with diaphoresis. However, at times, the pain would radiate downward from his chest and not involve his epigastric area at all. The patient does have a arc trimmer whom he sees in [place], where we attempted to receive records on as the patient states he recently had a negative stress test. In previous months had an EGD done by GI here, which showed an ulcer. During his hospitalization, we requested those records from his arc trimmer and awaited that to determine course of action. GI saw the patient and did an EGD, where they took a biopsy. This biopsy showed chronic inactive gastritis. No H pylori organisms were seen. GI then signed off. This was after the Eliquis had been stopped for 2 days that the patient had come in on. After finally receiving the records regarding the patient's stress test and heart cath, our arc trimmer decided to proceed with heart cath here due to the length of time since his previous one. Heart cath was completed on 08/14/2019, which showed no interventions were required. The patient was then cleared by Cardiology for discharge and instructed to restart his Eliquis the following 08/16/2019. FINAL DIAGNOSES: Chest pain and epigastric pain. DISCHARGE MEDICATIONS: No new medications were ordered. He is to be discharged on; 1. Eliquis 5 mg p.o. b.i.d. to be started on 08/16/2019. 2. Aspirin 81 mg p.o. daily. 3. Atorvastatin 20 mg p.o. at bedtime. 4. Metoprolol 25 mg p.o. b.i.d. 5. Ranexa 500 mg p.o. b.i.d. DISCHARGE INSTRUCTIONS: The patient was encouraged to follow up with his primary care physician if the pain continues and was also to follow up with his arc trimmer in [place]. He was also given his GI physician's information in case he needs to follow up with him. TIME SPENT: Total time coordinating the discharge of this patient was 25 minutes. Job ID: [id number]
--- NOTE | 2019-08-23 15:01 | EKG ---
Test Reason : Blood Pressure : / mmHG Vent. Rate : 072 BPM Atrial Rate : 072 BPM P-R Int : 156 ms QRS Dur : 070 ms QT Int : 370 ms P-R-T Axes : 063 018 020 degrees QTc Int : 405 ms Normal sinus rhythm Septal infarct , age undetermined Abnormal ECG Confirmed by GARY BROOKS, LOUISE ([id number]), editor continuity and script JERRELL VARNER ([id number]) on 08/23/2019 3:01:15 PM Referred By: Confirmed By:LOUISE VEGA MD
== END 2019-08-14 17:02 | disposition home or self-care (01) ==
LOC: ERS 15:06 → 2NO 20:38
PROVIDERS: ADMIT Internal Medicine; ATTEND Internal Medicine
PROC: 0DB78ZX Excision of Stomach, Pylorus, Via Natural or Artificial Opening Endoscopic, Diagnostic (ICD-10-PCS; 2019-08-12)
PROC: 4A023N7 Measurement of Cardiac Sampling and Pressure, Left Heart, Percutaneous Approach (ICD-10-PCS; principal; 2019-08-14)
PROC: B2111ZZ Fluoroscopy of Multiple Coronary Arteries using Low Osmolar Contrast (ICD-10-PCS; 2019-08-14)
DX: R07.89 Other chest pain (principal); K29.50 Unspecified chronic gastritis without bleeding; K29.80 Duodenitis without bleeding; K31.89 Other diseases of stomach and duodenum; I10 Essential (primary) hypertension; E78.5 Hyperlipidemia, unspecified; F17.210 Nicotine dependence, cigarettes, uncomplicated; I48.91 Unspecified atrial fibrillation; Z20.828 Contact with and (suspected) exposure to other viral communicable diseases; Z79.01 Long term (current) use of anticoagulants; Z79.82 Long term (current) use of aspirin; Z79.899 Other long term (current) drug therapy; Z88.8 Allergy status to other drugs, medicaments and biological substances
CPT/HCPCS: 43239; 71045; 76705; 76942; 80048 ×2; 80053; 82550; 83690; 83880; 84484 ×2; 85025 ×3; 85347; 85610; 85730; 88305; 88312; 93005; 93458; 94760 ×4; 96374; 96375; 96376 ×4; 99285; C1769; G0378 ×7; U0003; 36415; 87635; 99152; C9113; J1644; J2001; J2250; J2270; J2704; J2720; J3010; Q9967

== ENCOUNTER 2019-08-26 10:10 | Outpatient (CLI) | payer MEDICARE ==
[~2019-08-26 10:10] MED LIST: Iopamidol 370 76% 100 ML VIAL ONE
--- NOTE | 2019-08-26 15:25 | CT ---
CTA OF THE HEAD WITH AND WITHOUT IV CONTRAST UTILIZING 3D REFORMATTED IMAGIN08/26/19 INDICATION: History of dizziness and giddiness. COMPARISON: Prior MR of the brain with and without contrast dated 12/13/18. Noncontrast CT of the brain: No acute infarct, hemorrhage, or hydrocephalus is present. Septum pellucidum and third ventricle are midline. Mastoid air cells and paranasal sinuses are clear. Skull is intact. CTA of the head with contrast and 3D reformatted imaging: No hemodynamically significant stenosis, occlusion or aneurysmal formation is evident. Both ACAs orig inates off the left ICA. There is a right posterior communicating artery. The left posterior communic ating artery is not well seen. The right vertebral artery appears diminutive but patent. No area of a bnormal enhancement is demonstrated. IMPRESSION: 1. No hemodynamically significant stenosis, occlusion or aneurysmal formation demonstrated. 2. No acute intracranial abnormality noted. POS: BH
== END 2019-08-26 10:11 | disposition home or self-care (01) ==
LOC: CT 10:10
PROVIDERS: ATTEND Internal Medicine
DX: R42 Dizziness and giddiness (principal)
CPT/HCPCS: 70496; Q9967

== ENCOUNTER 2019-12-15 08:35 | Outpatient (CLI) | payer MEDICARE ==
--- NOTE | 2019-12-15 10:10 | MRI ---
MRI CERVICAL SPINE WITHOUT CONTRAST: HISTORY: Cervical radiculopathy. Neck pain, radiating down both shoulders.. COMPARISON: 12/28/2017. FINDINGS: Appropriate T1 marrow signal intensity of the cervical vertebrae. Cervical spine vertebral body heig hts are maintained. No fracture. Stable type II Modic changes at C4-C5 and C5-C6. There are type I Modic changes along the left C6-C7 disc space. No significant STIR hyperintensity to suggest vertebra l body edema or ligamentous injury. Visualized brain parenchyma, cervicomedullary junction, cervical cord and the upper thoracic cord hav e a normal size and signal intensity. C2-C3: Disc desiccation. Left paracentral disc herniation. Mild mass effect upon the thecal sac. No s ignificant central canal stenosis. Patent bilateral neural foramina. C3-C4: Disc desiccation with mild loss of disc space height. Broad-based disc disc-osteophyte complex effaces the subarachnoid space. There is flattening of the cervical cord. Mild central canal stenosis. Moderate bilateral neural foraminal narrowing due to uncovertebral hypertrophy. C4-C5: Disc desiccation with moderate loss of disc space height. Broad-based disc-osteophyte complex effaces the subarachnoid space. Flattening of the cervical cord. Moderate central canal stenosis. Moderate bilateral neural foraminal narrowing. The overall degree of central canal stenosis and neura l foraminal stenosis is similar to the previous exam. C5-C6: Minimal disc desiccation with mild loss of disc space height. Broad-based disc-osteophyte comp rachel with a left paracentral component. Mass effect upon the left hemicord, without cord signal abnormality. Mild to moderate central canal stenosis. Mild bilateral neural foraminal narrowing. The degree of stenosis is unchanged. C6-C7: Disc desiccation with mild loss of disc space height. Broad-based disc-osteophyte complex abut s the thecal sac. Deformity of the cervical cord with mild central canal stenosis. Moderate to severe bilateral neural foraminal narrowing, unchanged. C7-T1: No significant central canal stenosis or significant neural foraminal narrowing. IMPRESSION: Multilevel degenerative changes of the cervical spine as detailed above. No appreciable change when c ompared to the previous exam. Transcribed Date/Time: 12/15/2019 11:49 AM
== END 2019-12-15 08:36 | disposition home or self-care (01) ==
LOC: BICMRI 08:35
PROVIDERS: ATTEND Surgery
DX: M48.02 Spinal stenosis, cervical region (principal); M47.22 Other spondylosis with radiculopathy, cervical region
CPT/HCPCS: 72141

== ENCOUNTER 2020-06-22 15:05 | Outpatient (CLI) | payer MEDICARE ==
[2020-06-22 16:45] LABS: #Basophils 0.1 10x3/uL (0.0-0.2); #Eosinphils 0.1 10x3/uL (0.0-0.5); #Monocytes 0.6 10x3/uL (0.0-1.1); %Eosinophils 2.1 % (0.0-6.0); %Lymphocytes 39.5 % (18.0-47.0); %Monocytes 9.5 % (0.0-10.0); %Neutrophils 47.7 % (40.0-75.0); Hemoglobin 15.1 g/dL (13.5-17.5); Mean Corpuscular HGB CONC 33.4 g/dL (32.0-36.0); Mean Corpuscular Hemoglobin 33.2 pg (27.0-33.0); Mean Corpuscular Volume 99.3 fl (81.2-95.1); Mean Platelet Volume 9.5 fl (7.4-10.4); Platelet Count 314 10x3/uL (150-450); RBC Distribution Width 13.2 % (11.5-14.5); Red Blood Cell (RBC) Count 4.55 10x6/uL (4.32-5.72); White Blood Cell (WBC) Count 6.3 10x3/uL (3.5-10.5)
[2020-06-22 16:57] LABS: ALT (SGPT) 20 U/L (8-55); AST (SGOT) 19 U/L (5-34); Albumin 4.1 g/dL (3.5-5.0); Alkaline Phosphatase 88 U/L (40-110); Anion Gap 12 mmol/L (10-20); BUN (Urea Nitrogen) 8 mg/dL (8.4-25.7); Bilirubin, Total 0.8 mg/dL (0.2-1.2); Calc. Creatinine Clearance 0 mL/min (70-130); Calcium 9.2 mg/dL (7.8-10.44); Carbon Dioxide 27 mmol/L (22-29); Chloride 103 mmol/L (98-107); Globulin 2.7 g/dL (2.4-3.5); Glucose 92 mg/dL (70-105); Potassium 4.6 mmol/L (3.5-5.1); Protein, Total 6.8 g/dL (6.0-8.3); Sodium 137 mmol/L (136-145)
[2020-06-23 06:01] LABS: SARS-CoV-2 PCR by NAA Not Detected (NotDetected)
== END 2020-06-22 15:06 | disposition home or self-care (01) ==
LOC: LABBT 15:05
PROVIDERS: ATTEND Specialist
DX: Z01.818 Encounter for other preprocedural examination (principal); K81.9 Cholecystitis, unspecified; Z20.822 Contact with and (suspected) exposure to COVID-19
CPT/HCPCS: 80053; 85025; 93005; U0003; U0005; 87635; 93010

== ENCOUNTER 2020-06-25 11:07 | Day surgery (SDC) | payer MEDICARE ==
[2020-06-24 12:20] VITALS: BMI 24.5
[2020-06-25] MEDS ORDERED: Ketorolac Tromethamine 30 MG/ML VIAL ONE (12:46)
[2020-06-25] MEDS ORDERED: Acetaminophen 500 MG TAB ONE (12:46)
[2020-06-25] MEDS ORDERED: Bupivacaine PF 0.5% 30 ML VIAL ONE (14:06)
[2020-06-25] MEDS ORDERED: Lidocaine 1% w/Epinephrine 1:100K 20 ML VIAL ONE (14:10)
[2020-06-25] MEDS ORDERED: Famotidine/PF 20 mg/2ml Vial ONE (14:33)
[2020-06-25] MEDS ORDERED: Fentanyl 100 MCG/2 ML VIAL ONE ×4 (14:33→16:36)
[2020-06-25] MEDS ORDERED: Rocuronium Bromide 10 MG/ML (10ML VIAL) ONE (14:40)
[2020-06-25] MEDS ORDERED: Ondansetron PF 4 MG/2 ML Vial ONE ×2 (14:40→16:58)
[2020-06-25] MEDS ORDERED: PROPOFOL 200 MG/20 ML VIAL ONE (14:40)
[2020-06-25] MEDS ORDERED: Lidocaine 1% PF 5 ML VIAL ONE (14:40)
[2020-06-25] MEDS ORDERED: Racepinephrine 2.25% 0.5 ML NEB ONE (15:22)
[2020-06-25] MEDS ORDERED: Morphine 4 MG/ML VIAL ONE (16:23)
[2020-06-25] MEDS ORDERED: Promethazine HCl 25 MG/ML VIAL ONE (17:22)
[2020-06-25] MEDS ORDERED: HYDROcodone/Acetaminophen 5/325 mg Tablet ONE (17:55)
== END 2020-06-25 18:50 | disposition home or self-care (01) ==
LOC: SDC 11:07
PROVIDERS: ATTEND Specialist
PROC: 0FT44ZZ Resection of Gallbladder, Percutaneous Endoscopic Approach (ICD-10-PCS; principal; 2020-06-25)
DX: K80.10 Calculus of gallbladder with chronic cholecystitis without obstruction (principal); I48.0 Paroxysmal atrial fibrillation; I10 Essential (primary) hypertension; E78.5 Hyperlipidemia, unspecified; K21.9 Gastro-esophageal reflux disease without esophagitis; G89.29 Other chronic pain; R51.9 Headache, unspecified; F17.210 Nicotine dependence, cigarettes, uncomplicated; Z79.01 Long term (current) use of anticoagulants; Z79.82 Long term (current) use of aspirin; Z79.899 Other long term (current) drug therapy; Z88.8 Allergy status to other drugs, medicaments and biological substances; Z95.810 Presence of automatic (implantable) cardiac defibrillator
CPT/HCPCS: 88304; J0690; J1885; J2270; J2405; J2550; J2704; J3010; S0020; S0028

== ENCOUNTER 2020-08-02 07:26 | Outpatient (CLI) | payer MEDICARE ==
[2020-08-02] MEDS ORDERED: Iopamidol-370 76% 500 ML 1 ML ONE (10:58)
== END 2020-08-02 07:27 | disposition home or self-care (01) ==
LOC: BICCT 07:26
PROVIDERS: ATTEND Specialist
DX: R10.13 Epigastric pain (principal); N28.1 Cyst of kidney, acquired; K76.9 Liver disease, unspecified; I70.0 Atherosclerosis of aorta; R93.422 Abnormal radiologic findings on diagnostic imaging of left kidney; Z90.49 Acquired absence of other specified parts of digestive tract
CPT/HCPCS: 74177; Q9967

== ENCOUNTER 2021-02-25 17:08 | Outpatient (CLI) | payer MEDICARE ==
[2021-02-25 18:05] LABS: Hemoglobin 14.3 g/dL (13.5-17.5); Mean Corpuscular HGB CONC 33.3 g/dL (32.0-36.0); Mean Corpuscular Hemoglobin 33.6 pg (27.0-33.0); Mean Corpuscular Volume 100.7 fl (81.2-95.1); Mean Platelet Volume 9.2 fl (7.4-10.4); Platelet Count 258 10x3/uL (150-450); RBC Distribution Width 13.4 % (11.5-14.5); Red Blood Cell (RBC) Count 4.26 10x6/uL (4.32-5.72); White Blood Cell (WBC) Count 6.3 10x3/uL (3.5-10.5)
[2021-02-25 18:16] LABS: PTT 30.2 sec (22.0-33.0); Prothrombin Time 10.9 sec (9.5-12.1)
[2021-02-25 18:17] LABS: Anion Gap 12 mmol/L (10-20); BUN (Urea Nitrogen) 8 mg/dL (8.4-25.7); Calc. Creatinine Clearance 0 mL/min (70-130); Carbon Dioxide 25 mmol/L (22-29); Chloride 107 mmol/L (98-107); Sodium 140 mmol/L (136-145)
[2021-02-25 18:18] LABS: Calcium 9.4 mg/dL (7.8-10.44); Glucose 104 mg/dL (70-105)
[2021-02-26 18:16] LABS: SARS-CoV-2 PCR by NAA Not Detected (NotDetected)
== END 2021-02-25 17:09 | disposition home or self-care (01) ==
LOC: LABBT 17:08
PROVIDERS: ATTEND Internal Medicine Cardiovascular Disease
DX: Z01.812 Encounter for preprocedural laboratory examination (principal); Z20.822 Contact with and (suspected) exposure to COVID-19
CPT/HCPCS: 80048; 85027; 85610; 85730; 87040; U0003; U0005

== ENCOUNTER 2021-02-28 09:06 | Inpatient (IN) | payer MEDICARE ==
[2021-02-28] MEDS ORDERED: Gentamicin 80 MG/2 ML VIAL ONE (12:36)
[2021-02-28] MEDS ORDERED: CEFAZOLIN 1 GM VIAL ONE (12:36)
[2021-02-28] MEDS ORDERED: Fentanyl 100 MCG/2 ML VIAL ONE (14:15)
[2021-02-28] MEDS ORDERED: Propofol 500 MG/50 ML VIAL ONE (14:15)
[2021-02-28] MEDS ORDERED: PROPOFOL 200 MG/20 ML VIAL ONE (14:24)
[2021-02-28] MEDS ORDERED: Lidocaine 1% PF 5 ML VIAL ONE (14:24)
[2021-02-28] MEDS: Cephalexin 250 MG CAP PO SCH ×2 (18:17→21:06)
[2021-02-28] MEDS: Metoprolol Tartrate 25 MG TAB PO SCH (21:07)
[2021-02-28] MEDS: Atorvastatin Calcium 20 MG TAB PO SCH (21:07)
[2021-02-28] MEDS: Dofetilide 0.125 MG CAP PO SCH (21:07)
[2021-03-01] MEDS ORDERED: Prevnar 13-Val Conj/PF 0.5 ML SYRINGE IM ONE (09:00)
[2021-03-01] MEDS ORDERED: FLU VACC QS2021-22(6MOS UP)/PF 60 MCG/0.5 ML SYRINGE IM ONE (09:00)
[2021-03-01] MEDS: Aspirin Chewable 81 MG TAB PO SCH (09:48)
[2021-03-01] MEDS: Cephalexin 250 MG CAP PO SCH ×4 (09:48→20:51)
[2021-03-01] MEDS: Dofetilide 0.125 MG CAP PO SCH ×2 (09:48→20:50)
[2021-03-01] MEDS: Metoprolol Tartrate 25 MG TAB PO SCH ×2 (09:49→20:51)
[2021-03-01 10:26] VITALS: BMI 24.5
[2021-03-01] MEDS: Atorvastatin Calcium 20 MG TAB PO SCH (20:50)
[2021-03-01] MEDS: Acetaminophen 500 MG TAB PO PRN (20:51)
[2021-03-02 05:45] LABS: #Basophils 0.1 thou/uL (0.0-0.2); #Eosinphils 0.3 thou/uL (0.0-0.7); #Lymphocytes 2.5 thou/uL (1.20-3.40); #Monocytes 0.7 thou/uL (0.11-0.59); #Neutrophils 2.2 thou/uL (1.40-6.50); %Basophils 1.6 % (0.0-1.0); %Eosinophils 4.4 % (0.0-10.0); %Lymphocytes 43.7 % (21.0-51.0); %Monocytes 12.1 % (0.0-10.0); %Neutrophils 38.2 % (42.0-75.0); Hemoglobin 14.1 g/dL (14.0-18.0); Mean Corpuscular HGB CONC 33.3 g/dL (32.0-36.0); Mean Corpuscular Hemoglobin 34.4 pg (27.0-31.0); Mean Platelet Volume 6.7 fL (7.4-10.4); Platelet Count 260 thou/uL (130-400); RBC Distribution Width 12.1 % (11.5-14.5); Red Blood Cell (RBC) Count 4.11 mill/uL (4.70-6.10); White Blood Cell (WBC) Count 5.7 thou/uL (4.8-10.8)
[2021-03-02 06:06] LABS: ALT (SGPT) 14 U/L (8-55); AST (SGOT) 16 U/L (5-34); Albumin 3.5 g/dL (3.5-5.0); Alkaline Phosphatase 77 U/L (40-110); Anion Gap 11 mmol/L (10-20); BUN (Urea Nitrogen) 12 mg/dL (8.4-25.7); Bilirubin, Total 0.9 mg/dL (0.2-1.2); Calc. Creatinine Clearance 95 mL/min (70-130); Calcium 9.1 mg/dL (7.8-10.44); Carbon Dioxide 26 mmol/L (22-29); Chloride 105 mmol/L (98-107); Globulin 2.7 g/dL (2.4-3.5); Glucose 86 mg/dL (70-105); Potassium 3.9 mmol/L (3.5-5.1); Protein, Total 6.2 g/dL (6.0-8.3); Sodium 138 mmol/L (136-145)
[2021-03-02] MEDS ORDERED: Apixaban 5 MG TAB PO SCH (09:00)
[2021-03-02] MEDS: Cephalexin 250 MG CAP PO SCH (09:35)
[2021-03-02] MEDS: Aspirin Chewable 81 MG TAB PO SCH (09:36)
[2021-03-02] MEDS: Metoprolol Tartrate 25 MG TAB PO SCH ×2 (09:36→20:41)
[2021-03-02] MEDS: Dofetilide 0.125 MG CAP PO SCH ×2 (09:36→20:41)
[2021-03-02] MEDS ORDERED: Doxycycline 100 MG CAP PO SCH (11:00)
[2021-03-02] MEDS: Atorvastatin Calcium 20 MG TAB PO SCH (20:41)
[2021-03-02] MEDS: Doxycycline 100 MG CAP PO SCH (20:41)
[2021-03-03] MEDS: Doxycycline 100 MG CAP PO SCH (08:08)
[2021-03-03] MEDS: Dofetilide 0.125 MG CAP PO SCH (08:08)
[2021-03-03] MEDS: Metoprolol Tartrate 25 MG TAB PO SCH (08:09)
[2021-03-03] MEDS: Acetaminophen 500 MG TAB PO PRN (08:09)
[2021-03-03] MEDS: Aspirin Chewable 81 MG TAB PO SCH (08:09)
[2021-03-03 11:41] VITALS: BP 113/67; TEMP 98.7
== END 2021-03-03 16:16 | disposition home or self-care (01) | DRG 261 ==
LOC: SDC 09:06 → 2NO 11:05 → OBSVTOIN 03-01 13:54
PROVIDERS: ADMIT Internal Medicine Cardiovascular Disease; ATTEND Internal Medicine
PROC: 02PA3MZ Removal of Cardiac Lead from Heart, Percutaneous Approach (ICD-10-PCS; principal; 2021-02-28)
PROC: 0JPT0PZ Removal of Cardiac Rhythm Related Device from Trunk Subcutaneous Tissue and Fascia, Open Approach (ICD-10-PCS; 2021-02-28)
DX: T82.7XXA Infection and inflammatory reaction due to other cardiac and vascular devices, implants and grafts, initial encounter (principal); I47.1 Supraventricular tachycardia; Y84.8 Other medical procedures as the cause of abnormal reaction of the patient, or of later complication, without mention of misadventure at the time of the procedure; Z20.822 Contact with and (suspected) exposure to COVID-19; I48.0 Paroxysmal atrial fibrillation; I49.5 Sick sinus syndrome; I27.20 Pulmonary hypertension, unspecified; F17.210 Nicotine dependence, cigarettes, uncomplicated; E78.5 Hyperlipidemia, unspecified; I10 Essential (primary) hypertension; G47.33 Obstructive sleep apnea (adult) (pediatric); Z83.79 Family history of other diseases of the digestive system; Z83.1 Family history of other infectious and parasitic diseases; Z79.01 Long term (current) use of anticoagulants; Z79.82 Long term (current) use of aspirin; Z79.899 Other long term (current) drug therapy; Z88.8 Allergy status to other drugs, medicaments and biological substances; Z84.1 Family history of disorders of kidney and ureter; Z83.3 Family history of diabetes mellitus
CPT/HCPCS: 33233; 33235; 36415; 36416; 71045; 80053; 83735; 85025; 87070; 87205; 93005; 93010; G0378; J0690; J1580; J2704; J3010; J8499

== ENCOUNTER 2021-04-19 13:10 | Outpatient (CLI) | payer MEDICARE | END 2021-04-19 13:11 | disposition home or self-care (01) | LOC: BICCT 13:10 | PROVIDERS: ATTEND Family Medicine | DX: Z12.2 Encounter for screening for malignant neoplasm of respiratory organs (principal); F17.210 Nicotine dependence, cigarettes, uncomplicated | CPT/HCPCS: 71271 ==

== ENCOUNTER 2021-07-29 08:28 | Outpatient (CLI) | payer OTHER ==
[2021-07-29] MEDS ORDERED: Magnevist 469MG/ML 20 ML VIAL ONE (10:12)
== END 2021-07-29 08:29 | disposition home or self-care (01) ==
LOC: MRI 08:28
DX: K83.1 Obstruction of bile duct (principal)
CPT/HCPCS: 74183; A9579

== ENCOUNTER 2021-08-11 13:32 | Outpatient (CLI) | payer OTHER | END 2021-08-11 13:33 | disposition home or self-care (01) | LOC: BICCT 13:32 | PROVIDERS: ATTEND Internal Medicine | DX: K83.1 Obstruction of bile duct (principal); Q26.3 Partial anomalous pulmonary venous connection | CPT/HCPCS: 71260 ==

== ENCOUNTER 2022-05-22 08:05 | Outpatient (CLI) | payer OTHER ==
[2022-05-22] MEDS ORDERED: Iopamidol-370 76% 500 ML 1 ML ONE (09:29)
== END 2022-05-22 08:06 | disposition home or self-care (01) ==
LOC: BICCT 08:05
PROVIDERS: ATTEND Internal Medicine Hematology & Oncology
DX: C22.1 Intrahepatic bile duct carcinoma (principal); N28.1 Cyst of kidney, acquired; Z90.49 Acquired absence of other specified parts of digestive tract
CPT/HCPCS: 71260; 74177; 82565; Q9967

== ENCOUNTER 2022-09-07 10:00 | Outpatient (CLI) | payer OTHER | END 2022-09-07 10:01 | disposition home or self-care (01) | LOC: BICCT 10:00 | PROVIDERS: ATTEND Internal Medicine Hematology & Oncology | DX: C22.1 Intrahepatic bile duct carcinoma (principal); R97.8 Other abnormal tumor markers | CPT/HCPCS: 71260; 74177 ==

== ENCOUNTER 2022-09-21 08:33 | Outpatient (CLI) | payer OTHER | END 2022-09-21 08:34 | disposition home or self-care (01) | LOC: SCSMRI 08:33 | PROVIDERS: ATTEND Internal Medicine Hematology & Oncology | DX: C22.1 Intrahepatic bile duct carcinoma (principal); R97.8 Other abnormal tumor markers; K83.8 Other specified diseases of biliary tract; K83.1 Obstruction of bile duct; Z98.890 Other specified postprocedural states | CPT/HCPCS: 74183 ==

== ENCOUNTER 2023-02-20 12:20 | Outpatient (CLI) | payer OTHER ==
[~2023-02-20 12:20] MED LIST changes: -Iopamidol 370 76% 100 ML VIAL ONE; +Magnevist 469MG/ML 20 ML VIAL ONE
== END 2023-02-20 12:21 | disposition home or self-care (01) ==
LOC: MRI 12:20
PROVIDERS: ATTEND Family Medicine
DX: C22.1 Intrahepatic bile duct carcinoma (principal); M47.22 Other spondylosis with radiculopathy, cervical region
CPT/HCPCS: 70553; 72141; A9579

== ENCOUNTER 2023-04-21 15:39 | Emergency (ER) | payer OTHER ==
[~2023-04-21 15:39] MED LIST changes: +Iopamidol-370 76% 500 ML MDV (1 ML CHARGE) ONE; -Magnevist 469MG/ML 20 ML VIAL ONE
[2023-04-21 16:21] LABS: #Basophils 0.1 thou/uL (0.0-0.2); #Eosinphils 0.1 thou/uL (0.0-0.7); #Monocytes 0.5 thou/uL (0.11-0.59); #Neutrophils 3.1 thou/uL (1.40-6.50); %Eosinophils 2.8 % (0.0-10.0); %Lymphocytes 24.3 % (21.0-51.0); %Monocytes 10.6 % (0.0-10.0); %Neutrophils 61.3 % (42.0-75.0); Hematocrit 38.6 % (42.0-52.0); Hemoglobin 13.1 g/dL (14.0-18.0); Mean Corpuscular HGB CONC 33.9 g/dL (32.0-36.0); Mean Corpuscular Volume 103.2 fl (78.0-98.0); Mean Platelet Volume 9.5 fL (7.4-10.4); Platelet Count 220 10x3/uL (130-400); RBC Distribution Width 13.2 % (11.5-14.5); Red Blood Cell (RBC) Count 3.74 mill/uL (4.70-6.10)
[2023-04-21] MEDS ORDERED: Morphine 4 MG/ML VIAL ONE (16:40)
[2023-04-21 16:47] LABS: ALT (SGPT) 17 U/L (8-55); AST (SGOT) 21 U/L (5-34); Albumin 2.9 g/dL (3.4-4.8); Alkaline Phosphatase 138 U/L (40-110); Anion Gap 10 mmol/L (10-20); BUN (Urea Nitrogen) 20 mg/dL (8.4-25.7); Bilirubin, Total 0.6 mg/dL (0.2-1.2); Calc. Creatinine Clearance 0 mL/min (70-130); Carbon Dioxide 21 mmol/L (23-31); Chloride 111 mmol/L (98-107); Estimated GFR 99; Globulin 2.6 g/dL (2.4-3.5); Glucose 118 mg/dL (80-115); Lipase 36 U/L (8-78); Potassium 3.8 mmol/L (3.5-5.1); Protein, Total 5.5 g/dL (5.8-8.1); Sodium 138 mmol/L (136-145)
[2023-04-21 16:51] LABS: Troponin I Less than 0.010 ng/mL (< 0.028)
[2023-04-21] MEDS ORDERED: Ondansetron PF 4 MG/2 ML Vial ONE (17:12)
== END 2023-04-21 19:57 | disposition home or self-care (01) ==
LOC: ERS 15:39
DX: K83.8 Other specified diseases of biliary tract (principal); I10 Essential (primary) hypertension; F17.210 Nicotine dependence, cigarettes, uncomplicated
CPT/HCPCS: 36415; 74177; 80053; 83690; 83735; 84484; 85025; 93005; 96361; 96374; 96375; J2270; J2405; Q9967

== ENCOUNTER 2023-05-07 13:49 | Inpatient (IN) | payer OTHER ==
[2023-05-07] MEDS ORDERED: Iopamidol-370 76% 500 ML MDV (1 ML CHARGE) ONE (13:58)
[2023-05-07 14:34] LABS: #Basophils 0.1 thou/uL (0.0-0.2); #Eosinphils 0.1 thou/uL (0.0-0.7); #Monocytes 0.4 thou/uL (0.11-0.59); #Neutrophils 4.8 thou/uL (1.40-6.50); %Basophils 0.8 % (0.0-1.0); %Eosinophils 2.1 % (0.0-10.0); %Lymphocytes 13.5 % (21.0-51.0); %Neutrophils 77.3 % (42.0-75.0); Hematocrit 42.4 % (42.0-52.0); Hemoglobin 14.5 g/dL (14.0-18.0); Mean Corpuscular HGB CONC 34.2 g/dL (32.0-36.0); Mean Corpuscular Hemoglobin 34.7 pg (27.0-31.0); Mean Corpuscular Volume 101.4 fl (78.0-98.0); Mean Platelet Volume 9.2 fL (7.4-10.4); Platelet Count 309 10x3/uL (130-400); RBC Distribution Width 13.2 % (11.5-14.5); Red Blood Cell (RBC) Count 4.18 mill/uL (4.70-6.10); White Blood Cell (WBC) Count 6.2 10x3/uL (4.8-10.8)
[2023-05-07 15:08] LABS: ALT (SGPT) 19 U/L (8-55); AST (SGOT) 28 U/L (5-34); Albumin 2.9 g/dL (3.4-4.8); Alkaline Phosphatase 154 U/L (40-110); Anion Gap 15 mmol/L (10-20); BUN (Urea Nitrogen) 21 mg/dL (8.4-25.7); Bilirubin, Total 1.2 mg/dL (0.2-1.2); Calc. Creatinine Clearance 0 mL/min (70-130); Calcium 8.7 mg/dL (7.8-10.44); Carbon Dioxide 20 mmol/L (23-31); Chloride 107 mmol/L (98-107); Estimated GFR 100; Globulin 3.7 g/dL (2.4-3.5); Glucose 98 mg/dL (80-115); Lipase 17 U/L (8-78); Potassium 3.7 mmol/L (3.5-5.1); Protein, Total 6.6 g/dL (5.8-8.1); Sodium 138 mmol/L (136-145)
[2023-05-07] MEDS ORDERED: Morphine 4 MG/ML VIAL ONE (15:40)
[2023-05-07] MEDS ORDERED: Ondansetron PF 4 MG/2 ML Vial ONE ×2 (15:40→18:30)
[2023-05-07 17:03] LABS: Bacteria/HPF None Seen HPF (None Seen); Bilirubin 1+ (Negative); Blood, Urine Negative (Negative); CAUTI Indications for Culture < 2yrs of age; Clarity Turbid (Clear); Glucose, Urine (Dipstick) 30 mg/dL (Negative); Ketone, Urine 10 mg/dL (Negative); Leukocyte 25 Leu/uL (Negative); Nitrite Negative (Negative); Protein, Urine (Dipstick) 100 mg/dL (Neg-Trace); RBC/HPF 0-3 HPF (0-3); Specific Gravity, Urine 1.046 (1.002-1.036); Squamous Epithelial 0-3 HPF (0-3); Urobilinogen 3 mg/dL (Less than 2)
[2023-05-07 17:10] LABS: Urine Culture Reflex Yes Yes
[2023-05-07] MEDS ORDERED: Sodium Chloride 0.9% 100 ML ONE (17:33)
[2023-05-07] MEDS ORDERED: Furosemide 40 MG (4 mL) VIAL ONE (17:33)
[2023-05-07] MEDS ORDERED: Cefepime 2 GM VIAL ONE (17:33)
[2023-05-07] MEDS ORDERED: Vancomycin 1 GM/200 ML (FROZEN) BAG ONE (17:33)
[2023-05-07] MEDS ORDERED: Acetaminophen 650 MG Suppository PR PRN (18:38)
[2023-05-07] MEDS ORDERED: Ondansetron PF 4 MG/2 ML Vial IVP PRN (18:38)
[2023-05-07 18:50] LABS: INR-International Normal Ratio 1.2; PTT 33.7 sec (22.9-36.1); Prothrombin Time 14.8 sec (12.0-14.7)
[2023-05-07 18:53] LABS: Lactic Acid 3.6 mmol/L (0.5-2.2)
[2023-05-07] MEDS: Sodium Chloride 0.9% 1,000 ML IV SCH (20:47)
[2023-05-07] MEDS: Sodium Chloride 0.9% 500 ML IV SCH (20:48)
[2023-05-07] MEDS: Pantoprazole 40 MG VIAL IVP SCH (20:48)
[2023-05-07 22:34] VITALS: BMI 21.7
[2023-05-08 01:26] LABS: Lactic Acid 1.6 mmol/L (0.5-2.2)
[2023-05-08 06:32] LABS: #Eosinphils 0.1 thou/uL (0.0-0.7); #Monocytes 0.5 thou/uL (0.11-0.59); #Neutrophils 3.3 thou/uL (1.40-6.50); %Basophils 0.8 % (0.0-1.0); %Eosinophils 1.6 % (0.0-10.0); %Lymphocytes 19.9 % (21.0-51.0); %Monocytes 9.9 % (0.0-10.0); %Neutrophils 67.6 % (42.0-75.0); Hematocrit 33.9 % (42.0-52.0); Mean Corpuscular HGB CONC 33.6 g/dL (32.0-36.0); Mean Corpuscular Hemoglobin 34.5 pg (27.0-31.0); Mean Corpuscular Volume 102.7 fl (78.0-98.0); Mean Platelet Volume 9.3 fL (7.4-10.4); Platelet Count 234 10x3/uL (130-400); RBC Distribution Width 13.3 % (11.5-14.5); White Blood Cell (WBC) Count 4.9 10x3/uL (4.8-10.8)
[2023-05-08 06:33] LABS: Hemoglobin 11.4 g/dL (14.0-18.0)
[2023-05-08 07:05] LABS: Anion Gap 10 mmol/L (10-20); BUN (Urea Nitrogen) 19 mg/dL (8.4-25.7); Calc. Creatinine Clearance 97 mL/min (70-130); Calcium 7.5 mg/dL (7.8-10.44); Carbon Dioxide 25 mmol/L (23-31); Chloride 108 mmol/L (98-107); Estimated GFR 104; Glucose 76 mg/dL (80-115); Potassium 3.6 mmol/L (3.5-5.1); Sodium 139 mmol/L (136-145)
[2023-05-08] MEDS: Pantoprazole 40 MG VIAL IVP SCH (08:55)
[2023-05-08 15:23] LABS: ALT (SGPT) 15 U/L (8-55); AST (SGOT) 25 U/L (5-34); Albumin 2.4 g/dL (3.4-4.8); Alkaline Phosphatase 123 U/L (40-110); Bilirubin, Direct 0.4 mg/dL (0.1-0.3); Bilirubin, Total 0.9 mg/dL (0.2-1.2); Protein, Total 5.2 g/dL (5.8-8.1)
[2023-05-08] MEDS: cefTRIAXone\\ROCEPHIN 2 GM in Sodium Chloride 0.9% 100 ML IVPB SCH ×2 (16:43→16:49)
[2023-05-08] MEDS: Albumin 25% 25 GM (100 mL) BOT IVPB SCH (16:46)
[2023-05-08] MEDS: Morphine IR Tab 15 MG TAB PO PRN (18:27)
[2023-05-08] MEDS: Enoxaparin 60 MG (0.6 mL) SYRINGE SC SCH (20:03)
[2023-05-09 06:25] LABS: #Eosinphils 0.3 thou/uL (0.0-0.7); #Monocytes 0.5 thou/uL (0.11-0.59); %Basophils 0.9 % (0.0-1.0); %Eosinophils 5.6 % (0.0-10.0); %Lymphocytes 14.1 % (21.0-51.0); %Monocytes 11.4 % (0.0-10.0); %Neutrophils 67.8 % (42.0-75.0); Hematocrit 30.9 % (42.0-52.0); Hemoglobin 10.2 g/dL (14.0-18.0); Mean Corpuscular Hemoglobin 34.7 pg (27.0-31.0); Mean Corpuscular Volume 105.1 fl (78.0-98.0); Mean Platelet Volume 9.3 fL (7.4-10.4); Platelet Count 201 10x3/uL (130-400); RBC Distribution Width 13.4 % (11.5-14.5); Red Blood Cell (RBC) Count 2.94 mill/uL (4.70-6.10); White Blood Cell (WBC) Count 4.5 10x3/uL (4.8-10.8)
[2023-05-09 06:52] LABS: ALT (SGPT) 12 U/L (8-55); AST (SGOT) 21 U/L (5-34); Albumin 3.5 g/dL (3.4-4.8); Alkaline Phosphatase 91 U/L (40-110); Anion Gap 10 mmol/L (10-20); BUN (Urea Nitrogen) 16 mg/dL (8.4-25.7); Bilirubin, Direct 0.4 mg/dL (0.1-0.3); Bilirubin, Total 0.8 mg/dL (0.2-1.2); Calc. Creatinine Clearance 95 mL/min (70-130); Calcium 8.3 mg/dL (7.8-10.44); Carbon Dioxide 25 mmol/L (23-31); Chloride 111 mmol/L (98-107); Estimated GFR 103; Glucose 77 mg/dL (80-115); Potassium 3.7 mmol/L (3.5-5.1); Protein, Total 5.6 g/dL (5.8-8.1); Sodium 142 mmol/L (136-145)
[2023-05-09] MEDS ORDERED: Sodium Bicarbonate 2.5 MEQ/5 ML SDV ONE (08:18)
[2023-05-09] MEDS ORDERED: Lidocaine 1% PF 5 ML VIAL ONE (08:18)
[2023-05-09] MEDS: Furosemide 20 MG TAB PO SCH (10:25)
[2023-05-09] MEDS: Aspirin 81 mg Enteric Coated Tablet PO SCH (10:25)
[2023-05-09] MEDS: Spironolactone 25 MG TAB PO SCH (10:26)
[2023-05-09 11:41] LABS: RBC Count-Automated (BF) 134 /cu.mm; WBC/Nucleated-Auto (BF) 206 /cu.mm
[2023-05-09 11:45] LABS: BF Color Yellow; Body Fluid Source Ascites Body Fluid; Clarity Hazy (Clear); Tube # EDTA
[2023-05-09 11:55] LABS: Fluid, Protein 1.1 g/dL (Not Available)
[2023-05-09 12:13] LABS: BF Segmented Neutrophils 39 %; Cell Count Non Hematic 50 %; Lymphocytes 11 %
[2023-05-09] MEDS: Furosemide 40 MG TAB PO SCH (18:16)
[2023-05-10 07:17] LABS: #Eosinphils 0.3 thou/uL (0.0-0.7); #Monocytes 0.6 thou/uL (0.11-0.59); #Neutrophils 2.9 thou/uL (1.40-6.50); %Basophils 0.6 % (0.0-1.0); %Eosinophils 5.5 % (0.0-10.0); %Lymphocytes 20.4 % (21.0-51.0); %Monocytes 12.3 % (0.0-10.0); %Neutrophils 61.2 % (42.0-75.0); Hematocrit 34.1 % (42.0-52.0); Hemoglobin 11.5 g/dL (14.0-18.0); Mean Corpuscular HGB CONC 33.7 g/dL (32.0-36.0); Mean Corpuscular Hemoglobin 34.4 pg (27.0-31.0); Mean Corpuscular Volume 102.1 fl (78.0-98.0); Mean Platelet Volume 9.4 fL (7.4-10.4); Platelet Count 196 10x3/uL (130-400); RBC Distribution Width 13.3 % (11.5-14.5); Red Blood Cell (RBC) Count 3.34 mill/uL (4.70-6.10); White Blood Cell (WBC) Count 4.7 10x3/uL (4.8-10.8)
[2023-05-10 07:34] LABS: Anion Gap 9 mmol/L (10-20); BUN (Urea Nitrogen) 7 mg/dL (8.4-25.7); Calc. Creatinine Clearance 93 mL/min (70-130); Calcium 8.2 mg/dL (7.8-10.44); Carbon Dioxide 28 mmol/L (23-31); Chloride 106 mmol/L (98-107); Estimated GFR 103; Glucose 91 mg/dL (80-115); Potassium 3.5 mmol/L (3.5-5.1); Sodium 139 mmol/L (136-145)
[2023-05-10] MEDS: Furosemide 40 MG TAB PO SCH (08:18)
[2023-05-10] MEDS: Spironolactone 25 MG TAB PO SCH (08:19)
[2023-05-10] MEDS: FLU VACC QS2023-24(6MOS UP)/PF 60 MCG/0.5 ML SYRINGE IM ONE (09:56)
[2023-05-10] MEDS: Albumin 25% 25 GM (100 mL) BOT IVPB SCH (10:33)
[2023-05-10] MEDS ORDERED: Albumin 25% 25 GM (100 mL) BOT IVPB SCH (11:00)
[2023-05-10] MEDS: Acetaminophen 325 MG TAB PO PRN (23:54)
[2023-05-10] MEDS: Ondansetron ODT 4 MG TAB PO PRN (23:54)
[2023-05-11 05:21] LABS: #Eosinphils 0.2 thou/uL (0.0-0.7); #Monocytes 0.7 thou/uL (0.11-0.59); #Neutrophils 4.3 thou/uL (1.40-6.50); %Basophils 0.5 % (0.0-1.0); %Eosinophils 2.6 % (0.0-10.0); %Lymphocytes 13.3 % (21.0-51.0); %Monocytes 11.8 % (0.0-10.0); %Neutrophils 71.1 % (42.0-75.0); Hematocrit 28.9 % (42.0-52.0); Mean Corpuscular HGB CONC 34.6 g/dL (32.0-36.0); Mean Corpuscular Hemoglobin 34.5 pg (27.0-31.0); Mean Corpuscular Volume 99.7 fl (78.0-98.0); Mean Platelet Volume 9.4 fL (7.4-10.4); Platelet Count 171 10x3/uL (130-400); RBC Distribution Width 13.1 % (11.5-14.5); White Blood Cell (WBC) Count 6.1 10x3/uL (4.8-10.8)
[2023-05-11 05:54] LABS: Anion Gap 10 mmol/L (10-20); BUN (Urea Nitrogen) 6 mg/dL (8.4-25.7); Calc. Creatinine Clearance 93 mL/min (70-130); Calcium 8.6 mg/dL (7.8-10.44); Carbon Dioxide 27 mmol/L (23-31); Chloride 106 mmol/L (98-107); Estimated GFR 103; Glucose 99 mg/dL (80-115); Potassium 3.3 mmol/L (3.5-5.1); Sodium 140 mmol/L (136-145)
[2023-05-11] MEDS: Magnesium Citrate 300 ML BOT PO SCH (13:17)
[2023-05-11] MEDS: Polyethylene Glycol 3350 17 GM Packet PO PRN (16:34)
[2023-05-11] MEDS: Ketorolac Tromethamine 30 MG (1 mL) VIAL IVP PRN (17:10)
[2023-05-11] MEDS: Potassium Chloride 20 MEQ TAB PO SCH (17:11)
[2023-05-11] MEDS: Apixaban 5 MG TAB PO SCH (20:21)
[2023-05-11] MEDS: Senokot S 8.6-50 MG TAB PO SCH (20:21)
[2023-05-12 04:56] LABS: #Eosinphils 0.3 thou/uL (0.0-0.7); #Monocytes 0.6 thou/uL (0.11-0.59); #Neutrophils 5.4 thou/uL (1.40-6.50); %Basophils 0.4 % (0.0-1.0); %Eosinophils 3.6 % (0.0-10.0); %Monocytes 9.1 % (0.0-10.0); %Neutrophils 77.6 % (42.0-75.0); Hemoglobin 10.9 g/dL (14.0-18.0); Mean Corpuscular HGB CONC 34.1 g/dL (32.0-36.0); Mean Corpuscular Hemoglobin 34.6 pg (27.0-31.0); Mean Corpuscular Volume 101.6 fl (78.0-98.0); Mean Platelet Volume 9.2 fL (7.4-10.4); Platelet Count 159 10x3/uL (130-400); RBC Distribution Width 13.4 % (11.5-14.5); Red Blood Cell (RBC) Count 3.15 mill/uL (4.70-6.10); White Blood Cell (WBC) Count 6.9 10x3/uL (4.8-10.8)
[2023-05-12 05:22] LABS: Anion Gap 11 mmol/L (10-20); BUN (Urea Nitrogen) 9 mg/dL (8.4-25.7); Calc. Creatinine Clearance 93 mL/min (70-130); Calcium 8.5 mg/dL (7.8-10.44); Carbon Dioxide 27 mmol/L (23-31); Chloride 107 mmol/L (98-107); Estimated GFR 103; Glucose 112 mg/dL (80-115); Iron 12 ug/dL (65-175); Iron Binding Capacity, Total 83 mcg/dL (261-462); Potassium 3.5 mmol/L (3.5-5.1); Sodium 141 mmol/L (136-145)
[2023-05-12 05:37] LABS: Ferritin 143.05 ng/mL (22-322)
[2023-05-12 05:51] LABS: HBCM Index 0.05 S/CO (0-0.79); HBSAg Index 0.29 S/CO (0-0.99); Hep A IgM AB Non-Reactive S/CO (NonReactive); Hep A IgM S/CO 0.12 S/CO (0-0.79); Hep B Surf Ag Non-Reactive S/CO (NonReactive); Hep C IgG Ab Non-Reactive S/CO (NonReactive); Hep C Index 0.11 S/CO (0-0.79); Hepatitis B Core IgM Abs Non-Reactive S/CO (NonReactive)
[2023-05-13 05:11] LABS: #Eosinphils 0.5 thou/uL (0.0-0.7); #Monocytes 0.6 thou/uL (0.11-0.59); #Neutrophils 4.9 thou/uL (1.40-6.50); %Basophils 0.6 % (0.0-1.0); %Lymphocytes 13.3 % (21.0-51.0); %Monocytes 8.9 % (0.0-10.0); %Neutrophils 69.9 % (42.0-75.0); Hematocrit 33.3 % (42.0-52.0); Hemoglobin 11.4 g/dL (14.0-18.0); Mean Corpuscular HGB CONC 34.2 g/dL (32.0-36.0); Mean Corpuscular Hemoglobin 34.1 pg (27.0-31.0); Mean Corpuscular Volume 99.7 fl (78.0-98.0); Mean Platelet Volume 9.7 fL (7.4-10.4); Platelet Count 184 10x3/uL (130-400); RBC Distribution Width 13.5 % (11.5-14.5); Red Blood Cell (RBC) Count 3.34 mill/uL (4.70-6.10); White Blood Cell (WBC) Count 7.1 10x3/uL (4.8-10.8)
[2023-05-13 05:59] LABS: Anion Gap 12 mmol/L (10-20); BUN (Urea Nitrogen) 10 mg/dL (8.4-25.7); Calc. Creatinine Clearance 95 mL/min (70-130); Calcium 8.8 mg/dL (7.8-10.44); Carbon Dioxide 22 mmol/L (23-31); Chloride 110 mmol/L (98-107); Estimated GFR 105; Glucose 86 mg/dL (80-115); Potassium 3.7 mmol/L (3.5-5.1); Sodium 140 mmol/L (136-145)
[2023-05-13 07:59] VITALS: TEMP 99.9
[2023-05-13 11:36] VITALS: BP 115/73
[2023-05-15 12:35] LABS: ANA Symphony (Qualitative) Negative (Negative); ANA Symphony (Quantitative) 0.2 Ratio (< 0.7 Negative); EliA Vaculitis New Method **** NEW METHOD ****; dsDNA IgG Antibody 1.7 IU/mL (<10 Negative)
== END 2023-05-13 12:14 | disposition home or self-care (01) | DRG 433 ==
LOC: ERS 13:49 → T4-B 17:56 → OBSVTOIN 05-09 10:57
PROVIDERS: ADMIT Student in an Organized Health Care Education/Training Program; ATTEND Family Medicine
PROC: 0W9G3ZZ Drainage of Peritoneal Cavity, Percutaneous Approach (ICD-10-PCS; principal; 2023-05-09)
PROC: 30233J1 Transfusion of Nonautologous Serum Albumin into Peripheral Vein, Percutaneous Approach (ICD-10-PCS; 2023-05-13)
DX: K70.31 Alcoholic cirrhosis of liver with ascites (principal); E87.20 Acidosis, unspecified; K76.6 Portal hypertension; I48.20 Chronic atrial fibrillation, unspecified; K29.70 Gastritis, unspecified, without bleeding; I10 Essential (primary) hypertension; Z88.8 Allergy status to other drugs, medicaments and biological substances; Z79.82 Long term (current) use of aspirin; Z79.01 Long term (current) use of anticoagulants; F17.210 Nicotine dependence, cigarettes, uncomplicated; Z79.899 Other long term (current) drug therapy; I49.5 Sick sinus syndrome; K59.03 Drug induced constipation; K21.9 Gastro-esophageal reflux disease without esophagitis; R19.7 Diarrhea, unspecified
CPT/HCPCS: 36415; 49083; 71045; 74177; 76705; 80048; 80053; 80074; 80076; 81001; 82042; 82103; 82378; 82728; 82945; 83516; 83540; 83550; 83605; 83615; 83690; 84157; 84484; 85025; 85060; 85610; 85730; 86038; 86225; 86301; 87040; 87070; 87086; 87205; 88112; 88305; 89051; 96361; 96365; 96372; 96375; 96376; C9113; G0378; J0692; J0696; J1650; J1885; J1940; J2270; J2405; J3370-JW; J3490; J7030; J7050; P9047; Q0162; Q9967

== ENCOUNTER 2023-05-22 00:07 | Inpatient (IN) | payer OTHER ==
[2023-05-22] MEDS ORDERED: Glucagon 1 MG/ML KIT IM PRN (01:07)
[2023-05-22] MEDS ORDERED: Dextrose 5% in Water 1,000 ML IV PRN (01:07)
[2023-05-22] MEDS ORDERED: Electrolyte Replacement Protocol 1 EACH IVPB SCH (01:07)
[2023-05-22] MEDS ORDERED: Ipratropium/Albuterol 3 ML NEB NEB PRN (01:07)
[2023-05-22] MEDS ORDERED: NOREPINEPHRINE 8 MG/250 ML-D5W 250 ML IVPB SCH (01:15)
[2023-05-22 01:28] LABS: Hematocrit 29.1 % (42.0-52.0); Hemoglobin 9.9 g/dL (14.0-18.0); Manual Diff?? YES; Mean Corpuscular Hemoglobin 34.4 pg (27.0-31.0); Mean Platelet Volume 11.9 fL (7.4-10.4); RBC Distribution Width 14.8 % (11.5-14.5); Red Blood Cell (RBC) Count 2.88 mill/uL (4.70-6.10); White Blood Cell (WBC) Count 32.8 10x3/uL (4.8-10.8)
[2023-05-22 01:29] LABS: Delete Auto Diff?? YES; Platelet Count 82 10x3/uL (130-400)
[2023-05-22 01:40] LABS: INR-International Normal Ratio 2.4; Prothrombin Time 26.3 sec (12.0-14.7)
[2023-05-22 01:44] LABS: ALT (SGPT) 110 U/L (8-55); AST (SGOT) 279 U/L (5-34); Albumin 2.6 g/dL (3.4-4.8); Alkaline Phosphatase 294 U/L (40-110); BUN (Urea Nitrogen) 46 mg/dL (8.4-25.7); Bilirubin, Total 1.8 mg/dL (0.2-1.2); Calc. Creatinine Clearance 0 mL/min (70-130); Calcium 7.1 mg/dL (7.8-10.44); Chloride 103 mmol/L (98-107); Estimated GFR 40; Globulin 2.6 g/dL (2.4-3.5); Glucose 166 mg/dL (80-115); Lipase 173 U/L (8-78); Protein, Total 5.2 g/dL (5.8-8.1); Sodium 133 mmol/L (136-145)
[2023-05-22] MEDS: Piperacillin/Tazobactam 3.375 GM in Sodium Chloride 0.9% 100 ML IVPB SCH ×2 (01:46→06:03)
[2023-05-22] MEDS: Dextrose 5%-Lactated Ringers 1,000 ML IV SCH (01:47)
[2023-05-22 01:48] LABS: Carbon Dioxide Less than 8 mmol/L (23-31); Critical Call Chemistry ICU.RB@0147
[2023-05-22] MEDS: Albumin 25% 25 GM (100 mL) BOT IVPB SCH ×2 (01:48→06:03)
[2023-05-22] MEDS: Hydrocortisone Sod Succ/PF 100 mg/2 ml Vial IVP SCH ×2 (01:52→08:39)
[2023-05-22 02:01] LABS: Anisocytosis SLIGHT = 6-15 cells HPF (0-5); Band 14 % (5-11); Burr Cells MODERATE= 6-15 cells HPF (0-1); CellaVision Operator ID lab.sh2; Dohle Bodies SLIGHT; Large Platelets 3.8 % (0-5); Macrocytosis SLIGHT = 6-15 cells HPF (0-5); Monocytes 2 % (0-10); Neutrophil 84 % (42-75); Platelet Adequacy Comment Platelets Decreased; Poikilocytosis SLIGHT = 6-15 cells HPF (0-5); Polychromasia SLIGHT = 2-3 cells HPF (0-2); Smudge Cells 5.8 %; Total Cell Count 104; Vacuoles MODERATE
[2023-05-22 02:03] LABS: Critical Call Chem-Lactate NUR.SJB@0202
[2023-05-22] MEDS: Sodium Bicarb 50 mEq/50 ML VIAL IVP SCH ×3 (02:25→20:45)
[2023-05-22] MEDS ORDERED: Ondansetron PF 4 MG/2 ML Vial IVP PRN (02:53)
[2023-05-22] MEDS: Vancomycin (BATCH) 1.25 GM in Premix 1 BAG IVPB SCH (03:07)
[2023-05-22] MEDS: Sodium Bicarbonate 150 MEQ in Dextrose 5% in Water 1,000 ML IV SCH ×2 (03:07→07:29)
[2023-05-22] MEDS: Sodium Chloride 0.9% 1,000 ML IV SCH (03:54)
[2023-05-22] MEDS: NOREPINEPHRINE 8 MG/250 ML-D5W 250 ML IVPB SCH (03:54)
[2023-05-22] MEDS: Ondansetron PF 4 MG/2 ML Vial IVP PRN (06:02)
[2023-05-22] MEDS: Morphine 2 MG/ML VIAL SLOW IVP SCH (06:02)
[2023-05-22 07:18] LABS: ALT (SGPT) 241 U/L (8-55); AST (SGOT) 641 U/L (5-34); Albumin 3.2 g/dL (3.4-4.8); Alkaline Phosphatase 240 U/L (40-110); Anion Gap 28 mmol/L (10-20); BUN (Urea Nitrogen) 42 mg/dL (8.4-25.7); Bilirubin, Total 2.6 mg/dL (0.2-1.2); Calc. Creatinine Clearance 41 mL/min (70-130); Calcium 7.8 mg/dL (7.8-10.44); Chloride 105 mmol/L (98-107); Estimated GFR 50; Globulin 2.3 g/dL (2.4-3.5); Glucose 124 mg/dL (80-115); Potassium 4.6 mmol/L (3.5-5.1); Protein, Total 5.5 g/dL (5.8-8.1); Sodium 136 mmol/L (136-145)
[2023-05-22 07:25] LABS: Carbon Dioxide 8 mmol/L (23-31)
[2023-05-22] MEDS: Meropenem 1 GM in Sodium Chloride 0.9% 100 ML IVPB SCH ×3 (07:34→17:20)
[2023-05-22] MEDS: Famotidine/PF 20 mg/2ml Vial SLOW IVP SCH (08:39)
[2023-05-22] MEDS: Morphine 4 MG/ML VIAL SLOW IVP PRN (08:40)
[2023-05-22 11:42] LABS: Critical Call Chem-Lactate NUR.LG7@1141
[2023-05-22 12:10] LABS: Magnesium 1.8 mg/dL (1.6-2.6)
[2023-05-22] MEDS: Magnesium 2 GM/50 ML(in water) 2 GM in Premix 1 BAG IVPB SCH (13:52)
[2023-05-22 14:54] LABS: Critical Call Chem-Lactate NUR.AG15@1454; Lactic Acid 20.9 mmol/L (0.5-2.2)
[2023-05-22] MEDS: Etomidate 40 MG (20 mL) VIAL IVP SCH (15:25)
[2023-05-22] MEDS ORDERED: Ventilator Sedation Protocol 1 EACH FS SCH (15:30)
[2023-05-22] MEDS ORDERED: Fentanyl BOLUS 250 ML IVPB PRN (15:45)
[2023-05-22] MEDS ORDERED: Lorazepam 2 MG/ML VIAL SLOW IVP PRN (15:45)
[2023-05-22] MEDS ORDERED: Propofol BOLUS 1,000 MG/100 ML VIAL IV PRN (15:45)
[2023-05-22] MEDS ORDERED: Vasopressin 20 UNITS/ML VIAL IV SCH (15:45)
[2023-05-22] MEDS ORDERED: DISCONTINUE PREVIOUS NARCOTIC PAIN MEDICATIONS AND BENZODIAZEPINES FS SCH (15:45)
[2023-05-22 15:57] LABS: Base Excess (BEa) -23.1 mEq/L (-2.0 to +3.0); Calcium, Ionized (arterial) 1.01 mmol/L (1.12-1.30); Carboxyhemoglobin (COHb) 0.3 gm% (0.0-3.0); Hematocrit-ABG 28 % (42.0-52.0); Hemoglobin (Hb) 9.6 g/dL (14.0-18.0)
[2023-05-22] MEDS: Propofol 1,000 MG/100 ML VIAL IV ONE (15:57)
[2023-05-22 15:58] LABS: pH, Arterial 7.032 (7.35-7.45)
[2023-05-22 15:59] LABS: CO2 Tension 23.2 mmHg (35.0-45.0); Puncture Site RRA
[2023-05-22] MEDS: Fentanyl CADD 100 ML IV SCH (16:18)
[2023-05-22] MEDS: Vasopressin 20 UNITS, Admixture Fee 1 EACH in Sodium Chloride 0.9% 50 ML IV SCH (16:18)
[2023-05-22] MEDS: Fentanyl CADD 100 ML ONE (16:38)
[2023-05-22] MEDS: Dextrose 50% Abboject 50 ML SYRINGE SLOW IVP PRN (18:17)
[2023-05-22] MEDS: Morphine 2 MG/ML VIAL SLOW IVP PRN (19:24)
[2023-05-22 20:14] LABS: Base Excess (BEa) -20.6 mEq/L (-2.0 to +3.0); Calcium, Ionized (arterial) 0.98 mmol/L (1.12-1.30); Carboxyhemoglobin (COHb) 0.2 gm% (0.0-3.0); Hematocrit-ABG 28 % (42.0-52.0); Hemoglobin (Hb) 9.4 g/dL (14.0-18.0)
[2023-05-22 20:15] LABS: pH, Arterial 7.117 (7.35-7.45)
[2023-05-22 20:16] LABS: Actual Bicarbonate (HCO3a) 7.1 mEq/L (22-28); CO2 Tension 22.4 mmHg (35.0-45.0); Puncture Site Arterial Line
[2023-05-22] MEDS: Calcium Chloride 1 GM/10 ML Abboject SYRINGE IVP SCH (20:45)
[2023-05-22] MEDS ORDERED: Vasopressin 20 UNITS in Sodium Chloride 0.9% 50 ML IV SCH (21:00)
[2023-05-22 21:14] VITALS: TEMP 98.2
[2023-05-22 21:43] LABS: Base Excess (BEa) -20.5 mEq/L (-2.0 to +3.0); Carboxyhemoglobin (COHb) 0.3 gm% (0.0-3.0); Hematocrit-ABG 27 % (42.0-52.0); Hemoglobin (Hb) 9.3 g/dL (14.0-18.0); O2 Tension (PaO2), arterial 88.4 mmHg (> 80.0); Potassium - ABG Lab 4.74 mmol/L (3.70-5.30)
[2023-05-22 21:46] LABS: Actual Bicarbonate (HCO3a) 8.1 mEq/L (22-28); pH, Arterial 7.077 (7.35-7.45)
[2023-05-22 21:47] LABS: Puncture Site Arterial Line
[2023-05-22] MEDS: Propofol 1,000 MG/100 ML VIAL IV PRN (23:09)
[2023-05-22 23:37] LABS: Base Excess (BEa) -19.9 mEq/L (-2.0 to +3.0); CO2 Tension 25.6 mmHg (35.0-45.0); Calcium, Ionized (arterial) 1.03 mmol/L (1.12-1.30); Carboxyhemoglobin (COHb) 0.2 gm% (0.0-3.0); Hematocrit-ABG 28 % (42.0-52.0); Hemoglobin (Hb) 9.6 g/dL (14.0-18.0); O2 Tension (PaO2), arterial 114.7 mmHg (> 80.0); Potassium - ABG Lab 4.93 mmol/L (3.70-5.30)
[2023-05-22 23:38] LABS: pH, Arterial 7.112 (7.35-7.45)
[2023-05-22 23:39] LABS: Puncture Site Arterial Line
[2023-05-23] MEDS: Sodium Bicarb 50 mEq/50 ML VIAL IVP SCH ×2 (00:01→02:10)
[2023-05-23] MEDS: Sodium Bicarb 50 mEq/50 ML VIAL ONE (00:55)
[2023-05-23] MEDS: Calcium Chloride 1 GM/10 ML Abboject SYRINGE IVP SCH (02:10)
[2023-05-23] MEDS: Lidocaine 1% w/Epinephrine 1:100K 20 ML VIAL IJ SCH (02:15)
[2023-05-23] MEDS ORDERED: Phenylephrine 40 MG, Admixture Fee 1 EACH in Sodium Chloride 0.9% 250 ML 250 ML IVPB SCH ×2 (02:15→02:30)
[2023-05-23] MEDS: Vancomycin 1 GM in Premix 1 BAG IVPB SCH (03:57)
[2023-05-23 04:13] LABS: BF Color Black; Body Fluid Source Abscess Fluid; Clarity Cloudy/Turbid (Clear)
[2023-05-23 04:37] LABS: Hematocrit 27.5 % (42.0-52.0); Hemoglobin 8.9 g/dL (14.0-18.0); Manual Diff?? YES; Mean Corpuscular HGB CONC 32.4 g/dL (32.0-36.0); Mean Corpuscular Hemoglobin 33.7 pg (27.0-31.0); Mean Corpuscular Volume 104.2 fl (78.0-98.0); Mean Platelet Volume 12.4 fL (7.4-10.4); RBC Distribution Width 16.3 % (11.5-14.5); Red Blood Cell (RBC) Count 2.64 mill/uL (4.70-6.10); White Blood Cell (WBC) Count 31.8 10x3/uL (4.8-10.8)
[2023-05-23 04:38] LABS: Delete Auto Diff?? YES; Platelet Count 44 10x3/uL (130-400)
[2023-05-23 05:02] LABS: ALT (SGPT) 1394 U/L (8-55); AST (SGOT) Greater than 3500 U/L (5-34); Albumin 3.3 g/dL (3.4-4.8); Alkaline Phosphatase 184 U/L (40-110); Anion Gap 45 mmol/L (10-20); BUN (Urea Nitrogen) 47 mg/dL (8.4-25.7); Bilirubin, Total 3.4 mg/dL (0.2-1.2); Calc. Creatinine Clearance 24 mL/min (70-130); Calcium 8.6 mg/dL (7.8-10.44); Carbon Dioxide 9 mmol/L (23-31); Chloride 93 mmol/L (98-107); Estimated GFR 27; Globulin 1.8 g/dL (2.4-3.5); Glucose 108 mg/dL (80-115); Potassium 4.9 mmol/L (3.5-5.1); Protein, Total 5.1 g/dL (5.8-8.1); Sodium 142 mmol/L (136-145)
[2023-05-23 05:15] LABS: Band 25 % (5-11); CellaVision Operator ID LAB.CLH1; Hypochromia SLIGHT = 6-15 cells HPF (0-5); Large Platelets 1.8 % (0-5); Lymphocytes 6 % (21-51); Macrocytosis SLIGHT = 6-15 cells HPF (0-5); Metamyelocyte 14 % (0-0); Monocytes 8 % (0-10); Myelocyte 1 % (0-0); Neutrophil 47 % (42-75); Platelet Adequacy Comment Platelets Decreased; Polychromasia SLIGHT = 2-3 cells HPF (0-2); Smudge Cells 32.1 %; Total Cell Count 109
[2023-05-23] MEDS: Albumin 25% 25 GM (100 mL) BOT IVPB SCH (05:26)
[2023-05-23 06:04] LABS: Critical Call Chem-Lactate ICU.TMC @0604; Lactic Acid 29.2 mmol/L (0.5-2.2)
[2023-05-23 07:39] VITALS: BP 105/52
[2023-05-23 07:44] LABS: Base Excess (BEa) -16.3 mEq/L (-2.0 to +3.0); Calcium, Ionized (arterial) 0.96 mmol/L (1.12-1.30); Carboxyhemoglobin (COHb) 0.3 gm% (0.0-3.0); Hematocrit-ABG 26 % (42.0-52.0); Hemoglobin (Hb) 8.9 g/dL (14.0-18.0); O2 Tension (PaO2), arterial 111.4 mmHg (> 80.0); Potassium - ABG Lab 4.85 mmol/L (3.70-5.30)
[2023-05-23 07:45] LABS: Actual Bicarbonate (HCO3a) 10.1 mEq/L (22-28); Puncture Site Arterial Line; pH, Arterial 7.208 (7.35-7.45)
[2023-05-23 08:18] LABS: Reference Lab Name LABCORP
== END 2023-05-23 09:15 | disposition short-term general hospital (02) | DRG 871 ==
LOC: CCU 00:54
PROVIDERS: ADMIT Student in an Organized Health Care Education/Training Program; ATTEND Internal Medicine
PROC: 0BH17EZ Insertion of Endotracheal Airway into Trachea, Via Natural or Artificial Opening (ICD-10-PCS; principal; 2023-05-22)
PROC: 5A1935Z Respiratory Ventilation, Less than 24 Consecutive Hours (ICD-10-PCS; 2023-05-22)
PROC: 03HY32Z Insertion of Monitoring Device into Upper Artery, Percutaneous Approach (ICD-10-PCS; 2023-05-22)
PROC: 3E043XZ Introduction of Vasopressor into Central Vein, Percutaneous Approach (ICD-10-PCS; 2023-05-22)
DX: A41.50 Gram-negative sepsis, unspecified (principal); J80 Acute respiratory distress syndrome; R65.21 Severe sepsis with septic shock; K75.0 Abscess of liver; K83.1 Obstruction of bile duct; N17.9 Acute kidney failure, unspecified; E87.20 Acidosis, unspecified; C22.1 Intrahepatic bile duct carcinoma; I10 Essential (primary) hypertension; I48.91 Unspecified atrial fibrillation; D69.6 Thrombocytopenia, unspecified; E16.2 Hypoglycemia, unspecified; E88.09 Other disorders of plasma-protein metabolism, not elsewhere classified; F17.210 Nicotine dependence, cigarettes, uncomplicated; K74.60 Unspecified cirrhosis of liver; F10.10 Alcohol abuse, uncomplicated; E78.5 Hyperlipidemia, unspecified; Z95.0 Presence of cardiac pacemaker; Z79.01 Long term (current) use of anticoagulants; Z79.899 Other long term (current) drug therapy; E78.00 Pure hypercholesterolemia, unspecified; I49.9 Cardiac arrhythmia, unspecified; Z55.6 Problems related to health literacy
CPT/HCPCS: 36415; 36416; 36556; 36600; 47010; 51702; 71045; 74176; 77002; 80053; 81001; 82805; 83605; 83690; 83735; 83880; 84145; 84484; 85025; 85060; 85610; 85730; 87040; 87070; 87077; 87081; 87149; 87186; 87205; 88112; 88305; 89051; 93005; 94002; 94003; 96365; 96366; 96367; 96375; J0692; J1720; J2185; J2270; J2272; J2405; J2543; J2704; J3010; J3370; J3370-JW; J3475; J3490; J7050; J7070; J7999; P9047; S0028